=== PATIENT | male | born 1945 | race Two or more races ===

== ENCOUNTER 2017-11-03 21:55 | Inpatient (IN) | payer MEDICARE, MEDICAID ==
[~2017-11-03] VITALS: Ht 167.6 cm; Wt 79.4 kg
[2017-11-03 23:24] LABS: EOSINOPHILS % (AUTO) 3.7 % (0.0-3.0); HEMOGLOBIN 12.5 G/DL (14.2-18.0); LYMPHOCYTES % (AUTO) 27.9 % (20.0-45.0); MEAN CORPUSCULAR VOLUME 89 FL (80-99); MONOCYTES % (AUTO) 9.4 % (1.0-10.0); PLATELET COUNT 538 K/UL (150-450); RED BLOOD COUNT 4.29 M/UL (4.70-6.10); RED CELL DISTRIBUTION WIDTH 12.3 % (11.6-14.8); WHITE BLOOD COUNT 7.7 K/UL (4.8-10.8)
[2017-11-03] MEDS ORDERED: TAMSULOSIN HCL0.4 MG ORAL (23:46)
[2017-11-03] MEDS ORDERED: FOLIC ACID1 MG ORAL (23:46)
[2017-11-03] MEDS ORDERED: NORVASC5 MG ORAL (23:46)
[2017-11-03] MEDS ORDERED: MULTIVITAMINS1 EAC8 ORAL (23:46)
[2017-11-03] MEDS ORDERED: MILK OF MA400 MG/51 ORAL (23:46)
[2017-11-03] MEDS ORDERED: ACETAMINOPHEN325 M1 ORAL (23:46)
[2017-11-03] MEDS ORDERED: DOCUSATE SODIU100 MG ORAL (23:46)
[2017-11-03] MEDS ORDERED: VITAMIN B-1100 MG ORAL (23:46)
[2017-11-03 23:48] LABS: ANION GAP 4 mmol/L (5-15); BLOOD UREA NITROGEN 13 mg/dL (7-18); CALCIUM 8.7 MG/DL (8.5-10.1); CARBON DIOXIDE 33 MMOL/L (21-32); CHLORIDE 101 MMOL/L (98-107); CREATININE 0.9 MG/DL (0.55-1.30); POTASSIUM 3.7 MMOL/L (3.5-5.1); SODIUM 138 MMOL/L (136-145)
[2017-11-03 23:53] LABS: ALANINE AMINOTRANSFERASE 39 U/L (12-78); ALBUMIN 2.3 G/DL (3.4-5.0); ALBUMIN/GLOBULIN RATIO 0.4 (1.0-2.7); ALKALINE PHOSPHATASE 106 U/L (46-116); ASPARTATE AMINO TRANSFERASE 21 U/L (15-37); BILIRUBIN,TOTAL 0.2 MG/DL (0.2-1.0)
[2017-11-04] VITALS (12 sets, daily range): BP systolic 104–151; BP diastolic 66–80
[2017-11-04] MEDS ORDERED: Pantoprazole Inj IVP ONE (00:15)
--- NOTE | 2017-11-04 01:23 | Emergency Room Report ---
History of Present Illness General Chief Complaint: Gastrointestinal Bleed Source: Patient, Medical Record, EMS Present Illness HPI This is a 72-year-old male with a history of encephalopathy. Also history hypertension diabetes. He presents with chief complaint of coffee-ground emesis. Onset today. One episode. Patient doesn't remember and has no complaint. He has no pain. History is from intermediate note via EMS. Allergies: Coded Allergies: No Known Allergies (Unverified , 11/03/17) Patient History Past Medical History: see triage record, old chart reviewed Past Surgical History: other Pertinent Family History: none Social History: Denies: smoking Immunizations: other Reviewed Nursing Documentation: PMH: Agreed, PSxH: Agreed Nursing Documentation-PMH Hx Hypertension: Yes Hx Diabetes: Yes Review of Systems Eye: Denies: eye pain, blurred vision ENT: Denies: ear pain, nose congestion, throat swelling Respiratory: Denies: cough, shortness of breath Cardiovascular: Denies: chest pain, palpitations Gastrointestinal: Denies: abdominal pain, diarrhea, nausea, vomiting Musculoskeletal: Denies: back pain, joint pain Skin: Denies: rash Neurological: Denies: headache, numbness Endocrine: Denies: increased thirst, increased urine Hematologic/Lymphatic: Denies: easy bruising All Other Systems: negative except mentioned in HPI Physical Exam Vital Signs Date Time Temp Pulse Resp B/P (MAP) Pulse Ox O2 Delivery O2 Flow Rate FiO2 11/03/17 21:57 98.2 72 18 132/74 99 Room Air 98.2 vitals normal Sp02 EP Interpretation: reviewed, normal General Appearance: well appearing, no apparent distress, alert Head: normocephalic, atraumatic Eyes: bilateral eye PERRL, bilateral eye EOMI ENT: hearing grossly normal, normal pharynx Neck: full range of motion, supple, no meningismus Respiratory: chest non-tender, lungs clear, normal breath sounds Cardiovascular #1: regular rate, rhythm, no murmur Gastrointestinal: normal bowel sounds, non tender, no mass, no organomegaly, no bruit, non-distended Musculoskeletal: back normal, gait/station normal, normal range of motion Psychiatric: mood/affect normal Skin: warm/dry Medical Decision Making Diagnostic Impression: Primary Impression: UGI bleed ER Course Patient with one episode of coffee-ground emesis per intermediate note. He has no vomiting here. He has no complaint here. Hemoglobin is stable. Because of his confusion, we'll admit for serial H&H and possible endoscopy. Lab Results Impression labs unremarkable Rhythm Strip Diag. Results Rhythm Strip Time: 01:23 EP Interpretation: yes Rate: 61 Rhythm: NSR, no PVC's, no ectopy Chest X-Ray Diagnostic Results Chest X-Ray Diagnostic Results : Chest X-Ray Ordered: Yes # of Views/Limited/Complete: 1 View Indication: Other - GI bleed EP Interpretation: Yes Interpretation: no consolidation, no effusion, no pneumothorax, no acute cardiopulmonary disease Impression: No acute disease Electronically Signed by: Brant Jarrell MD Last Vital Signs Date Time Temp Pulse Resp B/P (MAP) Pulse Ox O2 Delivery O2 Flow Rate FiO2 11/04/17 00:34 98.2 15 138/69 98 Room Air 98.2 11/03/17 21:57 72 Status: improved Disposition: ADMITTED INPATIENT Condition: Serious Referrals: Ricardo Slater MD (PCP) BRANT JARRELL M.D. Nov 04, 2017 01:23
[2017-11-04 02:19] LABS: APPEARANCE,URINE CLEAR; BILIRUBIN, URINE NEGATIVE (NEGATIVE); COLOR,URINE PALE YELLOW; GLUCOSE, URINE (UA) NEGATIVE (NEGATIVE); KETONES,URINE NEGATIVE (NEGATIVE); LEUKOCYTE ESTERASE ,URINE NEGATIVE (NEGATIVE); NITRITE,URINE NEGATIVE (NEGATIVE); PH,URINE 6.5 (4.5-8.0); PROTEIN,URINE NEGATIVE (NEGATIVE); UROBILINOGEN,URINE NORMAL MG/DL (0.0-1.0)
[2017-11-04] MEDS ORDERED: Milk of Magnesia 30ml Ud ORAL PRN (08:15)
[2017-11-04] MEDS ORDERED: Hydromorphone 0.5mg/0.5ml inj IVP PRN (08:15)
[2017-11-04] MEDS ORDERED: Pneumococcal Vaccine 25mcg/0.5ml IM ONE (08:15)
[2017-11-04] MEDS ORDERED: Flu Vaccine Quadrivalent 0.5ml IM ONE (08:15)
--- NOTE | 2017-11-04 08:37 | Pre-Procedure Note/Attestation ---
Pre-Procedure Note/Attestation Complete Prior to Procedure Planned Procedure: not applicable Procedure Narrative: EGD Indications for Procedure Pre-Operative Diagnosis: gib Attestation I attest that I discussed the nature of the procedure; its benefits; risks and complications; and alternatives (and the risks and benefits of such alternatives ), prior to the procedure, with the patient (or the patient's legal ambulatory services representative). I attest that, if there was a reasonable possibility of needing a blood transfusion, the patient (or the patient's legal ambulatory services representative) was given the [facility] standardized written summary, pursuant to the [place]ank [place] Blood Safety Act ([place] Health and Safety Code # 1645, as amended). I attest that I re-evaluated the patient just prior to the surgery and that there has been no change in the patient's H&P, except as documented below: MACIE GALEAS Nov 04, 2017 08:37
--- NOTE | 2017-11-04 08:38 | General Progress Note ---
Assessment/Plan Problem List: (1) UGI bleed ICD Codes: K92.2 - Gastrointestinal hemorrhage, unspecified SNOMED: [id number] Assessment/Plan plan EGd today ppi bid fu H&H Subjective ROS Limited/Unobtainable: Yes Allergies: Coded Allergies: No Known Allergies (Unverified , 11/03/17) Objective Last 24 Hour Vital Signs Date Time Temp Pulse Resp B/P (MAP) Pulse Ox O2 Delivery O2 Flow Rate FiO2 11/04/17 08:00 98.6 67 18 131/80 96 Room Air 98.6 11/04/17 03:00 98.4 65 18 151/74 99 Room Air 98.4 11/04/17 03:00 98.4 65 18 151/74 98 Room Air 98.4 11/04/17 02:50 97.9 59 14 145/70 98 Room Air 11/04/17 02:45 97.9 59 14 145/70 98 Room Air 97.9 11/04/17 01:31 98.2 76 16 135/70 98 Room Air 98.2 11/04/17 00:34 98.2 15 138/69 98 Room Air 98.2 11/03/17 21:57 98.2 72 18 132/74 99 Room Air 98.2 Laboratory Tests 11/03/17 23:00: White Blood Count 7.7, Red Blood Count 4.29L, Hemoglobin 12.5L, Hematocrit 38.0L , Mean Corpuscular Volume 89, Mean Corpuscular Hemoglobin 29.1, Mean Corpuscular Hemoglobin Concent 32.9, Red Cell Distribution Width 12.3, Platelet Count 538H, Mean Platelet Volume 6.4L, Neutrophils (%) (Auto) 58.0, Lymphocytes (%) (Auto) 27.9, Monocytes (%) (Auto) 9.4, Eosinophils (%) (Auto) 3.7H, Basophils (%) (Auto) 1.0, Prothrombin Time 10.7, Prothromb Time International Ratio 1.0, Activated Partial Thromboplast Time 31, Sodium Level 138, Potassium Level 3.7, Chloride Level 101, Carbon Dioxide Level 33H, Anion Gap 4L, Blood Urea Nitrogen 13, Creatinine 0.9, Estimat Glomerular Filtration Rate , Glucose Level 93, Calcium Level 8.7, Total Bilirubin 0.2, Aspartate Amino Transf (AST/ SGOT) 21, Alanine Aminotransferase (ALT/SGPT) 39, Alkaline Phosphatase 106, Total Protein 7.5, Albumin 2.3L, Globulin 5.2, Albumin/Globulin Ratio 0.4L, Lipase 109 11/04/17 01:20: Urine Color Pale yellow, Urine Appearance Clear, Urine pH 6.5, Urine Specific [place] 1.015, Urine Protein Negative, Urine Glucose (UA) Negative, Urine Ketones Negative, Urine Occult Blood Negative, Urine Nitrite Negative, Urine Bilirubin Negative, Urine Urobilinogen Normal, Urine Leukocyte Esterase Negative Height (Feet): 5 Height (Inches): 6.00 Weight (Pounds): 175 General Appearance: alert EENT: normal ENT inspection Neck: supple Cardiovascular: normal rate Respiratory/Chest: decreased breath sounds Abdomen: normal bowel sounds, non tender, soft Extremities: non-tender MACIE GALEAS Nov 04, 2017 08:38
[2017-11-04] MEDS: Pantoprazole Inj IVP SCH ×2 (08:55→20:34)
--- NOTE | 2017-11-04 09:13 | Diagnostic Imaging Report ---
Indication: Shortness of breath Technique: One view of the chest Comparison: none Findings: On the lateral spaces are clear. The heart size is normal. The aorta is tortuous calcified and ectatic Impression: No acute process
[2017-11-04] MEDS ORDERED: NS w/KCl 20mEq 1,000 ML IV SCH (09:30)
[2017-11-04] MEDS ORDERED: LR 1000ml ONE (10:30)
[2017-11-04] MEDS ORDERED: Lidocaine 1% MPF 10mg/ml 5ml ONE (10:30)
[2017-11-04] MEDS ORDERED: Propofol 200mg/20ml IV ONE (10:30)
[2017-11-04] MEDS ORDERED: NS 500ML IV ONE (10:31)
--- NOTE | 2017-11-04 10:53 | Endoscopy Procedure Note ---
Endoscopy Procedure Note General Indication for Procedure: 'gib Procedures Performed: EGD Operative Findings/Diagnosis: barretts esophagus Specimen: yes Pt Tolerated Procedure Well: Yes Estimated Blood Loss: none Anesthesia Anesthesiologist: hien Anesthesia: MAC Inserted Devices Implant(s) used?: No GI Core Measures 50 yrs or older w/o bx or poly: Not Applicable 10yrs. F/U not recommended: Not Applicable MACIE GALEAS Nov 04, 2017 10:53
--- NOTE | 2017-11-04 10:55 | Immediate Post-Op Evaluation ---
Immediate Post-Op Evalulation Immediate Post-Op Evalulation Procedure: EGD Date of Evaluation: Nov 04, 2017 Time of Evaluation: 10:55 IV Fluids: 400 Blood Pressure Systolic: 112 Blood Pressure Diastolic: 68 Pulse Rate: 69 Respiratory Rate: 14 O2 Sat by Pulse Oximetry: 95 Temperature (Fahrenheit): 98.0 Pain Score (1-10): 0 Nausea: No Vomiting: No Complications none Patient Status: awake, reacts Hydration Status: adequate Drug: none TIFFANIE BAR CRNA Nov 04, 2017 10:55
--- NOTE | 2017-11-04 10:57 | Anethesia Preoperative Eval ---
Anesthesia Pre-op PMH/ROS General Date of Evaluation: Nov 04, 2017 Time of Evaluation: 10:30 Anesthesiologist: Maryanne ASA Score: ASA 2 Mallampati Score Class I : Soft palate, uvula, fauces, pillars visible Class II: Soft palate, uvula, fauces visible Class III: Soft palate, base of uvula visible Class IV: Only hard plate visible Mallampati Classification: Class II Surgeon: Albertina Diagnosis: UGI Surgical Procedure: EGD Anesthesia History: none Family History: no anesthesia problems Allergies: Coded Allergies: No Known Allergies (Unverified , 11/03/17) Medications: see eMAR Past Medical History Cardiovascular: Reports: HTN Pulmonary: Denies: asthma, COPD, CHRIS, other Gastrointestinal/Genitourinary: Reports: GERD, other - GI BLEEED, Denies: CRI, ESRD Neurologic/Psychiatric: Denies: dementia, CVA, depression/anxiety, TIA, other Endocrine: Denies: DM, hypothyroidism, steroids, other HEENT: Denies: cataract (L), cataract (R), glaucoma, TYONEK (L), TYONEK (R), other Hematology/Immune: Reports: anemia Musculoskeletal/Integumentary: Denies: OA, RA, DJD, DDD, edema, other PSxH Narrative: unknown Anesthesia Pre-op Phys. Exam Physician Exam Last Vital Signs Date Time Temp Pulse Resp B/P (MAP) Pulse Ox O2 Delivery O2 Flow Rate FiO2 11/04/17 08:00 98.6 67 18 131/80 96 Room Air 98.6 Constitutional: NAD Neurologic: CN 2-12 intact Cardiovascular: RRR Respiratory: CTA Gastrointestinal: S/NT/ND Airway Exam Mallampati Classification 3 Mallampati Score: Class II MO: full ROM: full Dentures: upper Anesthesia Pre-op A/P Labs Hematology Test 11/03/17 23:00 White Blood Count 7.7 K/UL (4.8-10.8) Red Blood Count 4.29 M/UL (4.70-6.10) L Hemoglobin 12.5 G/DL (14.2-18.0) L Hematocrit 38.0 % (42.0-52.0) L Mean Corpuscular Volume 89 FL (80-99) Mean Corpuscular Hemoglobin 29.1 PG (27.0-31.0) Mean Corpuscular Hemoglobin Concent 32.9 G/DL (32.0-36.0) Red Cell Distribution Width 12.3 % (11.6-14.8) Platelet Count 538 K/UL (150-450) H Mean Platelet Volume 6.4 FL (6.5-10.1) L Neutrophils (%) (Auto) 58.0 % (45.0-75.0) Lymphocytes (%) (Auto) 27.9 % (20.0-45.0) Monocytes (%) (Auto) 9.4 % (1.0-10.0) Eosinophils (%) (Auto) 3.7 % (0.0-3.0) H Basophils (%) (Auto) 1.0 % (0.0-2.0) Coagulation Test 11/03/17 23:00 Prothrombin Time 10.7 SEC (9.30-11.50) Prothromb Time International Ratio 1.0 (0.9-1.1) Activated Partial Thromboplast Time 31 SEC (23-33) Chemistry Test 11/03/17 23:00 Sodium Level 138 MMOL/L (136-145) Potassium Level 3.7 MMOL/L (3.5-5.1) Chloride Level 101 MMOL/L (98-107) Carbon Dioxide Level 33 MMOL/L (21-32) H Anion Gap 4 mmol/L (5-15) L Blood Urea Nitrogen 13 mg/dL (7-18) Creatinine 0.9 MG/DL (0.55-1.30) Estimat Glomerular Filtration Rate mL/min (>60) Glucose Level 93 MG/DL (74-106) Calcium Level 8.7 MG/DL (8.5-10.1) Total Bilirubin 0.2 MG/DL (0.2-1.0) Aspartate Amino Transf (AST/SGOT) 21 U/L (15-37) Alanine Aminotransferase (ALT/SGPT) 39 U/L (12-78) Alkaline Phosphatase 106 U/L (46-116) Total Protein 7.5 G/DL (6.4-8.2) Albumin 2.3 G/DL (3.4-5.0) L Globulin 5.2 g/dL Albumin/Globulin Ratio 0.4 (1.0-2.7) L Lipase 109 U/L (73-393) Studies Pre-op Studies: EKG - sr Risk Assessment & Plan Assessment: denies cp/sob, VSS Plan: mac Status Change Before Surgery: No Pre-Antibiotics Drug: none TIFFANIE BAR CRNA Nov 04, 2017 10:57
[2017-11-04] MEDS ORDERED: Enoxaparin 30mg Inj SUBQ SCH (12:00)
[2017-11-04] MEDS: Docusate 100mg cap ORAL SCH ×2 (12:43→20:34)
--- NOTE | 2017-11-04 13:40 | History & Physical ---
History and Physical History & Physicial [id number] Job ID [id number] Devlin Nov 04, 2017 13:40
--- NOTE | 2017-11-04 13:50 | 48 Hour Post Anesthesia Eval ---
Post Anesthesia Evaluation Procedure: EGD Date of Evaluation: Nov 04, 2017 Time of Evaluation: 13:50 Blood Pressure Systolic: 127 0: 66 Pulse Rate: 67 Respiratory Rate: 14 O2 Sat by Pulse Oximetry: 99 Nausea: No Vomiting: No Hydration Status: adequate Cardiopulmonary Status: stable Mental Status/LOC: patient returned to baseline Follow-up Care/Observations: na Post-Anesthesia Complications: none Follow-up care needed: N/A TIFFANIE BAR CRNA Nov 04, 2017 13:50
[2017-11-04] MEDS ORDERED: PROTONIX40 M2 GT (14:41)
--- NOTE | 2017-11-04 18:15 | Procedure Note ---
DATE OF PROCEDURE: 11/04/2017 SURGEON: Moisés Eng M.D. REFERRING PHYSICIAN: Ricardo Slater M.D. PROCEDURE: Upper endoscopy with biopsy. ANESTHESIA: Per REAL ESTATE APPRAISER, Priya Tarrillion. INSTRUMENT: Olympus adult flexible upper endoscope. INDICATION: Coffee-ground emesis. The procedure, risks, benefits, and possible consequences, including hemorrhage, aspiration, perforation and infection, and alternative treatments, were explained to the patient/legal guardian by Dr. Moisés Eng and the patient/legal guardian understood and accepted these risks. DESCRIPTION OF PROCEDURE: After informed consent was obtained and the patient was adequately sedated, Olympus upper endoscope was advanced from the mouth into the second portion of the duodenum and retroflexion was performed in the stomach. 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 GE junction was at 40 cm. The patient has a small hiatal hernia. No evidence of any esophagitis. Four biopsies from this Wheat's area were obtained for diagnosis. The patient also had multiple polyps in the stomach, most probably fundic gland polyps. No biopsies of these polyps was performed. The patient also had diffuse gastritis. Random biopsy from antrum and body was obtained to rule out H. pylori infection. The patient tolerated the procedure very well without any complication. SUMMARY OF FINDINGS: 1. A 7-cm Wheat esophagus, status post biopsy. 2. Small hiatal hernia. 3. Multiple gastric polyps, most probably fundic gland polyps. 4. Gastritis, status biopsy. RECOMMENDATIONS: 1. Follow biopsy results and treat accordingly. 2. The patient to be on PPI daily. 3. Reflux measures. 4. The patient is okay to be discharged. 5. Need colonoscopy as an outpatient. 6. Also needs followup for his Wheat esophagus as an outpatient. I want to thank Dr. Ricardo Slater for this kind referral. Moisés Eng M.D. DR: Denia JOB#: [id number] CC: Ricardo Slater M.D.; Fax#: [phone]
--- NOTE | 2017-11-05 01:15 | History and Physical Report ---
DATE OF ADMISSION: 11/04/2017 REASON FOR ADMISSION: GI bleed. IDENTIFICATION DATA: The patient is a pleasant 72-year-old male with past medical history significant for hypertension and encephalopathy, at this time presents with coffee-ground emesis one episode. The patient does not remember any of this and does not have any complaints at this time. [facility] of the [facility] as [facility] as [facility] records. GI has evaluated the patient in the morning today. Dr. Eng completed EGD, colonoscopy, and currently is on a PPI. Potentially, the patient is stable to be discharged today. PAST MEDICAL HISTORY: Encephalopathy, hypertension, and diabetes. PAST SURGICAL HISTORY: None known. SOCIAL HISTORY: No alcohol or illicit drug use, but does smoke. FAMILY HISTORY: Noncontributory. REVIEW OF SYSTEMS: CONSTITUTIONAL: No fevers, chills, or night sweats. SKIN: No rashes, bumps, or itching. HEENT: No headache, hearing or vision changes. BREASTS: No lumps, pain, or discharge. PULMONARY: No cough, sputum, or shortness of breath. GASTROINTESTINAL: Some nausea, vomiting, or diarrhea noted, however has improved. GENITOURINARY: No dysuria, frequency, or urgency. MUSCULOSKELETAL: No joint swelling, muscle pain, or trauma. PHYSICAL EXAMINATION: VITAL SIGNS: Reviewed. GENERAL: No distress. PULMONARY: Decreased breath sounds. CARDIOVASCULAR: Regular rate. No S3 or S4. ABDOMEN: Soft, nontender, and nondistended. EXTREMITIES: No cyanosis, swelling, or edema. LABORATORY DATA: WBC 7.7, hemoglobin 12.5, hematocrit 38, and platelet count ,000. ASSESSMENT AND RECOMMENDATIONS: 1. Gastrointestinal bleed. The patient is status post esophagogastroduodenoscopy. Gastritis noted. The patient is okay to be discharged on proton pump inhibitor as outpatient to be followed up back to the half-way facility. 2. Anemia due to underlying chronic disease. Continue to closely monitor. 3. Thrombocytosis, secondary to reactive process from anemia. 4. Hyperlipidemia, likely secondary to decreased p.o. intake. 5. Smoking history. Recommend cessation. Continue to closely monitor. 6. The patient is stable for discharge. I appreciate the wig sales consultant care. Santino De La Paz M.D. DR: NIKKI JOB#: [id number] CC:
--- NOTE | 2017-11-07 11:53 | Discharge Summary ---
Discharge Summary Hospital Course Date of Admission Nov 04, 2017 at 00:51 Date of Discharge Nov 04, 2017 at 21:58 Admitting Diagnosis GI bleed HPI Heath Monterroso is a 72 year old male who was admitted on Nov 04, 2017 at 00:51 for Gi Bleed Hospital Course dc summary #[id number] Discharge Medications Continued Medications: Pantoprazole Sodium (Protonix) 40 Mg Granpkt.dr 40 MG GT DAILY for 30 Days, PKT 2 Refills Discharge Discharge Disposition Patient was discharged to SNF/Subacute Facility(03) Discharge Diagnoses: Discharge Instructions Discharge Instructions Special Instructions I have been assigned to complete a D/C Summary on this account. I was not involved in the patient management Arin Higgins NP (Vanchtein) Nov 07, 2017 11:53
--- NOTE | 2017-11-08 01:45 | Discharge Summary 2 SIG ---
DATE OF ADMISSION: 11/04/2017 DATE OF DISCHARGE: 11/04/2017 REASON FOR ADMISSION: 72 years old male with history of hypertension, encephalopathy, and diabetes mellitus, was sent from the alf facility for evaluation due to episode of coffee-ground emesis. Upon evaluation in the emergency room, vital signs were stable. Chemistry was unremarkable. Hemoglobin -12.5 and hematocrit -38. Urinalysis with no evidence of UTI. The patient was typed and crossed. Chest x-ray revealed no acute cardiopulmonary pathology. The patient was admitted with diagnosis of GI bleeding. HOSPITAL COURSE: The patient was admitted. GI consult was requested. The patient undergone esophagogastroduodenoscopy with finding of Wheat esophagitis, status post biopsy, small hiatal hernia, gastritis, status post biopsy. Multiple gastric polyps probably fundic gland polyps, status post biopsy. The patient was started on PPI. The patient was started on diet with strict reflux measures. Bowel regimen instituted. GI cleared the patient for discharge and recommended colonoscopy as outpatient. Follow up as outpatient for management of Wheat esophagitis. Hemoglobin and hematocrit remained stable. The patient had anemia of underlying chronic disease. The patient also noted slight thrombocytosis, which was due to reactive process from anemia. The patient with smoking history, counseled on smoking cessation. long term facility medications for blood pressure and blood sugar management were resumed. The patient was stable for discharge. GI cleared for discharge. Follow up with biopsy results and treat accordingly. No further episodes of coffee-ground emesis. The patient was able to tolerate diet. The patient was on DVT prophylaxis. Due to rapid and unexpected improvement in the patient's condition, the patient was discharged in one day. FINAL DIAGNOSES: 1. GI bleeding, 2. Status post EGD. 3. Wheat esophagitis, status post biopsy 4. Gastritis, status post biopsy. 5. Anemia due to underlying chronic disease. 6. Thrombocytosis. 7. Smoking history. 8. Hyperlipidemia. DISCHARGE MEDICATIONS: See medication reconciliation list. DISCHARGE INSTRUCTIONS: The patient was discharged to alf facility. FOLLOWUP: Follow up with medical doctor at the facility. Outpatient follow up with GI for colonoscopy and management of Wheat esophagitis. Ali Hadadz, M.D. I have been assigned to dictate discharge summary on this account and I was not involved in the patient's management. Arin Higgins (Vanchtein) NBrentonPBrenton DR: Zakia JOB#: [id number] CC: RAMIRO
== END 2017-11-04 21:58 | DRG 379 ==
LOC: EDBD 21:55 → EMR 22:47 → 3E 11-04 00:51 → EDBEDREQ 11-04 01:14
PROC: 0DB58ZX Excision of Esophagus, Via Natural or Artificial Opening Endoscopic, Diagnostic (ICD-10-PCS; principal; 2017-11-04 10:34)
PROC: 0DB78ZX Excision of Stomach, Pylorus, Via Natural or Artificial Opening Endoscopic, Diagnostic (ICD-10-PCS; principal; 2017-11-04 10:34)
PROC: 0DB68ZX Excision of Stomach, Via Natural or Artificial Opening Endoscopic, Diagnostic (ICD-10-PCS; principal; 2017-11-04 10:34)
DX: K92.2 Gastrointestinal hemorrhage, unspecified (principal); E11.9 Type 2 diabetes mellitus without complications; D63.8 Anemia in other chronic diseases classified elsewhere; I10 Essential (primary) hypertension; D47.3 Essential (hemorrhagic) thrombocythemia; K22.70 Barrett's esophagus without dysplasia; E78.5 Hyperlipidemia, unspecified; F17.200 Nicotine dependence, unspecified, uncomplicated; K31.7 Polyp of stomach and duodenum
CPT/HCPCS: 36415; 71045; 80053; 81003; 83690; 85025; 85610; 85730; 86850; 86900; 86901; 94003; 94150; 99285

== ENCOUNTER 2017-12-17 02:23 | Inpatient (IN) | payer MEDICARE, MEDICAID ==
[~2017-12-17] VITALS: Ht 170.2 cm; Wt 81.6 kg
[~2017-12-17 02:23] MED LIST: ACETAMINOPHEN325 M1 ORAL; DOCUSATE SODIU100 MG ORAL; FOLIC ACID1 MG ORAL; MILK OF MA400 MG/51 ORAL; MULTIVITAMINS1 EAC8 ORAL; NORVASC5 MG ORAL; PROTONIX40 M2 GT; TAMSULOSIN HCL0.4 MG ORAL; VITAMIN B-1100 MG ORAL
[2017-12-17 03:07] LABS: EOSINOPHILS % (AUTO) 3.8 % (0.0-3.0); HEMATOCRIT 38.8 % (42.0-52.0); LYMPHOCYTES % (AUTO) 30.6 % (20.0-45.0); MEAN CORPUSCULAR VOLUME 87 FL (80-99); MONOCYTES % (AUTO) 10.1 % (1.0-10.0); NEUTROPHILS % (AUTO) 54.5 % (45.0-75.0); PLATELET COUNT 308 K/UL (150-450); RED BLOOD COUNT 4.48 M/UL (4.70-6.10); RED CELL DISTRIBUTION WIDTH 13.2 % (11.6-14.8); WHITE BLOOD COUNT 7.8 K/UL (4.8-10.8)
[2017-12-17 03:11] LABS: ANION GAP 7 mmol/L (5-15); BLOOD UREA NITROGEN 14 mg/dL (7-18); CALCIUM 8.2 MG/DL (8.5-10.1); CARBON DIOXIDE 29 MMOL/L (21-32); CHLORIDE 104 MMOL/L (98-107); CREATININE 0.9 MG/DL (0.55-1.30); POTASSIUM 3.5 MMOL/L (3.5-5.1); SODIUM 139 MMOL/L (136-145)
[2017-12-17 03:24] LABS: ALANINE AMINOTRANSFERASE 15 U/L (12-78); ALBUMIN 2.9 G/DL (3.4-5.0); ALBUMIN/GLOBULIN RATIO 0.6 (1.0-2.7); ALKALINE PHOSPHATASE 103 U/L (46-116); ASPARTATE AMINO TRANSFERASE 14 U/L (15-37); BILIRUBIN,TOTAL 0.4 MG/DL (0.2-1.0); CKMB 0.9 NG/ML (0.0-3.6); CREATINE KINASE 83 U/L (26-308)
[2017-12-17] MEDS ORDERED: cefTRIAXone 1 GM in NS 55 ML IVPB ONE (03:30)
--- NOTE | 2017-12-17 03:47 | Emergency Room Report ---
History of Present Illness General Chief Complaint: Lower Extremity Injury Source: Patient, Medical Record Present Illness HPI Patient is a 72-year-old male sent in by nursing facility for increased left foot discomfort and swelling. Patient had gradual onset of symptoms over the past 2-3 days. The patient denies any fever. He reports being diabetic. Patient prior history of encephalopathy. The history is markedly limited by patient being a poor historian. Allergies: Coded Allergies: No Known Allergies (Unverified , 11/03/17) Patient History Past Medical History: see triage record Reviewed Nursing Documentation: PMH: Agreed; PSxH: Agreed Nursing Documentation-PMH Hx Hypertension: Yes Hx Diabetes: Yes - type 2 dm Hx Cancer: No Hx Gastrointestinal Problems: No Review of Systems All Other Systems: negative except mentioned in HPI Physical Exam Vital Signs Date Time Temp Pulse Resp B/P (MAP) Pulse Ox O2 Delivery O2 Flow Rate FiO2 12/17/17 02:24 98.7 60 18 155/79 98 Room Air 98.8 Sp02 EP Interpretation: reviewed, normal General Appearance: normal inspection, well appearing, no apparent distress, alert, GCS 15 Head: atraumatic ENT: normal ENT inspection, hearing grossly normal, normal voice Neck: normal inspection, full range of motion, supple, no bony tend Respiratory: normal inspection, lungs clear, normal breath sounds, no respiratory distress, no retraction, no wheezing Cardiovascular #1: regular rate, rhythm, no edema Gastrointestinal: normal inspection, normal bowel sounds, non tender, soft, no guarding, no hernia Genitourinary: no CVA tenderness Musculoskeletal: normal inspection, back normal, normal range of motion Neurologic: normal inspection, alert, responsive, rehab nurse III-XII nml as tested, speech normal Psychiatric: normal inspection, judgement/insight normal, mood/affect normal Skin: no rash, other - left foot swelling, discoloration, abrasions Medical Decision Making Diagnostic Impression: Primary Impression: Cellulitis of left foot Additional Impression: Diabetes ER Course Patient presented for skin rash. Differential diagnosis included wasn't limited to cellulitis, osteomyelitis, abscess, DVT among others.Because of complexity of patient's case laboratory testing and imaging studies were ordered. The patient noted to have increased swelling to the left foot. The patient was noted to have brisk dorsalis pedis pulses. Patient was started on IV antibiotics.Dr. Ricardo Peters was contacted for inpatient management Labs Test 12/17/17 02:33 White Blood Count 7.8 K/UL (4.8-10.8) Red Blood Count 4.48 M/UL (4.70-6.10) Hemoglobin 13.0 G/DL (14.2-18.0) Hematocrit 38.8 % (42.0-52.0) Mean Corpuscular Volume 87 FL (80-99) Mean Corpuscular Hemoglobin 29.1 PG (27.0-31.0) Mean Corpuscular Hemoglobin Concent 33.6 G/DL (32.0-36.0) Red Cell Distribution Width 13.2 % (11.6-14.8) Platelet Count 308 K/UL (150-450) Mean Platelet Volume 7.1 FL (6.5-10.1) Neutrophils (%) (Auto) 54.5 % (45.0-75.0) Lymphocytes (%) (Auto) 30.6 % (20.0-45.0) Monocytes (%) (Auto) 10.1 % (1.0-10.0) Eosinophils (%) (Auto) 3.8 % (0.0-3.0) Basophils (%) (Auto) 1.0 % (0.0-2.0) Sodium Level 139 MMOL/L (136-145) Potassium Level 3.5 MMOL/L (3.5-5.1) Chloride Level 104 MMOL/L (98-107) Carbon Dioxide Level 29 MMOL/L (21-32) Anion Gap 7 mmol/L (5-15) Blood Urea Nitrogen 14 mg/dL (7-18) Creatinine 0.9 MG/DL (0.55-1.30) Estimat Glomerular Filtration Rate mL/min (>60) Glucose Level 88 MG/DL (74-106) Lactic Acid Level 0.80 mmol/L (0.66-2.22) Calcium Level 8.2 MG/DL (8.5-10.1) Phosphorus Level 3.0 MG/DL (2.5-4.9) Magnesium Level 2.1 MG/DL (1.8-2.4) Total Bilirubin 0.4 MG/DL (0.2-1.0) Aspartate Amino Transf (AST/SGOT) 14 U/L (15-37) Alanine Aminotransferase (ALT/SGPT) 15 U/L (12-78) Alkaline Phosphatase 103 U/L (46-116) Total Creatine Kinase 83 U/L (26-308) Creatine Kinase MB 0.9 NG/ML (0.0-3.6) Creatine Kinase MB Relative Index 1.0 Troponin I 0.004 ng/mL (0.000-0.056) Total Protein 8.1 G/DL (6.4-8.2) Albumin 2.9 G/DL (3.4-5.0) Globulin 5.2 g/dL Albumin/Globulin Ratio 0.6 (1.0-2.7) EKG Diagnostic Results Rate: normal Rhythm: NSR ST Segments: no acute changes Last Vital Signs Date Time Temp Pulse Resp B/P (MAP) Pulse Ox O2 Delivery O2 Flow Rate FiO2 12/17/17 02:24 98.7 60 18 155/79 98 Room Air 98.8 Status: unchanged Disposition: ADMITTED INPATIENT Condition: Serious Referrals: Ricardo Slater MD (PCP) Nando Mackey Dec 17, 2017 03:47
[2017-12-17 04:30] VITALS: BP 136/54
[2017-12-17 04:39] LABS: APPEARANCE,URINE CLEAR; BILIRUBIN, URINE NEGATIVE (NEGATIVE); COLOR,URINE PALE YELLOW; GLUCOSE, URINE (UA) NEGATIVE (NEGATIVE); KETONES,URINE NEGATIVE (NEGATIVE); LEUKOCYTE ESTERASE ,URINE NEGATIVE (NEGATIVE); NITRITE,URINE NEGATIVE (NEGATIVE); PH,URINE 7 (4.5-8.0); PROTEIN,URINE NEGATIVE (NEGATIVE); UROBILINOGEN,URINE NORMAL MG/DL (0.0-1.0)
[2017-12-17] MEDS ORDERED: MOM30 ML ORAL ×2 (05:36→05:39)
[2017-12-17 05:49] VITALS: BP 139/76
[2017-12-17 08:00] VITALS: BP 124/77
--- NOTE | 2017-12-17 09:33 | Diagnostic Imaging Report ---
Indication: Left foot pain Technique: Left foot 3 views Comparison: None Findings: There is no radiographically evident fracture or dislocation. There is degenerative spurring and narrowing of the first metatarsophalangeal joint. Osteopenia is noted. Soft tissue swelling is seen. Impression: No radiographically evident fracture or dislocation. Soft tissue swelling. Clinical correlation recommended. Other findings as above.
--- NOTE | 2017-12-17 09:34 | Diagnostic Imaging Report ---
Indication: Shortness of breath Technique: XRAY Chest 1v Comparison: 11/03/2017 Findings: Cardiomediastinal silhouette is stable. Atherosclerotic changes are seen. There is no consolidation or pleural effusion. Osseous structures are stable. Impression: No acute cardiopulmonary disease.
[2017-12-17 12:00] VITALS: BP 153/72
[2017-12-17] MEDS ORDERED: Docusate 100mg cap ORAL SCH (12:02)
[2017-12-17] MEDS ORDERED: Thiamine 100mg tab ORAL SCH (12:05)
[2017-12-17] MEDS: Vancomycin 1.5 GM/D5W 250ML IVPB SCH (15:21)
[2017-12-17] MEDS ORDERED: NS 275ml ONE (15:30)
[2017-12-17 16:00] VITALS: BP 145/71
[2017-12-17 20:00] VITALS: BP 139/77
[2017-12-17] MEDS ORDERED: Milk of Magnesia 30ml Ud ORAL PRN (21:00)
[2017-12-17] MEDS: Tamsulosin 0.4mg cap ORAL SCH (21:01)
[2017-12-18] VITALS: BP 128/72
--- NOTE | 2017-12-18 04:15 | History and Physical Report ---
DATE OF ADMISSION: 12/17/2017 HISTORY OF PRESENT ILLNESS: The patient is admitted for left foot cellulitis. The patient does complain of pain in left foot as well. The patient denies fever or chills. Denies nausea, vomiting, diarrhea, and abdominal pain. No shortness of breath. Denies cough. PAST MEDICAL HISTORY: Constipation, GERD, BPH as well as history of borderline diabetes mellitus as well as history of hypertension. FAMILY HISTORY: Noncontributory. SOCIAL HISTORY: Denies history of alcohol or illicit drugs. REVIEW OF SYSTEMS: HEENT: Denies headaches. RESPIRATORY: Denies shortness of breath. Denies cough. CARDIOVASCULAR: Denies chest pain. Denies orthopnea. GASTROINTESTINAL: Denies nausea, vomiting, or diarrhea. constipation. EXTREMITIES: Reports of foot pain. PHYSICAL EXAMINATION: VITAL SIGNS: Temperature 98.7 degrees, pulse of 62, and blood pressure is 132/54. HEENT: PERRLA. NECK: Supple. No lymphadenopathy. CHEST: Clear to auscultation. GASTROINTESTINAL: Soft, nontender, and nondistended. No organomegaly. EXTREMITIES: The patient does have erythema and redness on bilateral left foot. cellulitis and lower extremity weakness. LABORATORY AND DIAGNOSTIC DATA: WBC of 7.8, hemoglobin 13, and platelets of 308,000. Sodium 139, potassium 3.5, BUN of 14, creatinine of 0.9, and glucose of 88. ASSESSMENT AND PLAN: Cellulitis of the foot as well as hypokalemia. I have asked Dr. Gomes, Dr. Szymanski, and Dr. Perdomo, broadcast maintenance engineer, to see the patient for the above-mentioned diagnoses and treatment. Antibiotics per ID team. Ricardo Slater M.D. DR: MING JOB#: [id number] CC:
[2017-12-18 08:00] VITALS: BP 127/77
--- NOTE | 2017-12-18 08:30 | Consultation ---
Consult Note Assessment/Plan A/ 1) Cellulitis left foot 2) Generalized excoriations 3) DM P 1) Abx per ID. 2) No surgical intervention needed. Lesions can be left open to air. 3) Will follow Thank you Rachid Swanson DPM Dec 18, 2017 08:30
[2017-12-18] MEDS: Docusate 100mg cap ORAL SCH (09:27)
[2017-12-18] MEDS: Thiamine 100mg tab ORAL SCH (09:27)
[2017-12-18 12:00] VITALS: BP 116/79
[2017-12-18] MEDS: Vancomycin 1.5 GM/D5W 250ML IVPB SCH (13:41)
[2017-12-18] MEDS ORDERED: Vancomycin 750mg/NS 250ml IVPB SCH (15:30)
[2017-12-18 16:00] VITALS: BP 129/66
--- NOTE | 2017-12-18 16:45 | Consultation ---
DATE OF CONSULTATION: 12/18/2017 REFERRING PHYSICIAN: Ricardo Slater M.D. CONSULTING PHYSICIAN: Rachid Perdomo D.P.M. REASON FOR CONSULTATION: Cellulitis of left foot in the presence of diabetes mellitus. HISTORY OF PRESENT ILLNESS: The patient is a 72-year-old male who was admitted to [facility] on 12/17/2017 for left foot cellulitis. The patient states that he has got lesions noted on his feet, his legs, and his body. Noticed increased swelling in the left leg. Currently denies any pain, fevers, chills, nausea, or vomiting. She is here for continued care and antibiotics. PAST MEDICAL HISTORY: Significant for gastroesophageal reflux disease, benign prostatic hypertrophy, diabetes mellitus, and history of hypertension. FAMILY HISTORY: Noncontributory. SOCIAL HISTORY: The patient resides in a shelter facility. ALLERGIES: He has no known drug allergies. MEDICATIONS: Per MAR and include vancomycin. REVIEW OF SYSTEMS: HEENT: The patient denies any headaches, blurred vision, or ringing in the ears. CARDIORESPIRATORY: The patient denies any chest pain or shortness of breath. GENITOURINARY: The patient denies any urgency, frequency, burning upon urination, or hematuria. GASTROINTESTINAL: The patient currently denies any constipation, diarrhea, or blood in stool. PHYSICAL EXAMINATION: VITAL SIGNS: Temperature is 98.0, pulse 66, respiration rate is 21 blood pressure is 128/72, and saturating 99% on room air. EXTREMITIES: Lower extremity physical exam, vascular, palpable pedal pulses noted bilaterally. Feet are equally warm. There is 1+ pitting edema noted on the left. No edema noted on the right. DERMATOLOGICAL: There is hair present on digits. There are multiple erythematous lesions noted on bilateral lower extremities. There is mild erythema noted on the left lower extremity. No drainage is noted from any of these sites. No fluctuance is noted. MUSCULOSKELETAL: The patient has 5/5 muscle strength in anterolateral and posterior muscle groups of bilateral lower extremities. No gross deformities are noted. NEUROLOGICAL: Protective thresholds intact. LABORATORY AND DIAGNOSTIC DATA: White blood cell count is 7.8, hemoglobin and hematocrit is 13.0 and 38.8, and platelet count is 308. Potassium is 3.5, BUN is 14, creatinine is 0.9. Lactic acid is 0.80. Albumin is 2.9. Foot x-ray of the left foot done on this admission shows soft tissue swelling. No other acute changes are noted. ASSESSMENT: 1. Cellulitis of the left foot. 2. Generalized excoriations throughout his body. 3. Diabetes mellitus. PLAN: 1. Antibiotics per Infectious Disease. 2. No surgical intervention that is indicated at this time. Lesions can be left open to air. 3. We will follow. Thank you for the courtesy of consultation, Dr. Slater. Rachid Perdomo D.P.M. DR: TIFFANIE JOB#: [id number] CC:
--- NOTE | 2017-12-18 18:00 | Consultation ---
DATE OF CONSULTATION: INFECTIOUS DISEASE CONSULTATION CONSULTING PHYSICIAN: Tello Gomes M.D. PRIMARY ATTENDING: Ricardo Slater M.D. REASON FOR CONSULT: Left foot cellulitis. HISTORY OF PRESENT ILLNESS: A 72-year-old male, admitted yesterday from nursing facility. He was complaining of foot swelling and discomfort. In addition, he has multiple skin scabs and skin itching. The patient was not febrile and has no leukocytosis at the time of admission. PAST MEDICAL HISTORY: Significant for diabetes mellitus type 2, hypertension, and encephalopathy. ALLERGIES: No known drug allergies. MEDICATIONS: Colace, folic acid, multivitamin, amlodipine, Protonix, thiamine, Flomax, vancomycin, and Tylenol. SOCIAL HISTORY: prison resident. No history of alcohol, drug abuse, or smoking. He is . REVIEW OF SYSTEMS: Very limited. The patient is not very cooperative. PHYSICAL EXAMINATION: VITAL SIGNS: Temperature 98.4, pulse 70, and blood pressure 127/77. GENERAL APPEARANCE: No acute distress. HEAD AND NECK: [place] conjunctivae. Has no teeth. HEART: Regular. LUNGS: Clear. ABDOMEN: Soft and nontender. EXTREMITIES: No edema. SKIN: Multiple skin rashes in form of ulcerated scabs, more in lower extremities. There are some areas of skin lesion in the left foot. IMPRESSION: 1. Cellulitis of left foot. 2. Rash, may be secondary to dermatitis and skin dryness. 3. Diabetes mellitus type 2. 4. Hypertension. RECOMMENDATION: We will continue with IV vancomycin. We will follow up the culture. We will try to discharge patient with p.o. antibiotic. At the end of my exam, I thank Dr. Slater for involving me in the care of this patient. Tello Gomes M.D. DR: WILLIS JOB#: [id number] CC: RAMIRO
[2017-12-18 20:00] VITALS: BP 124/73
[2017-12-18] MEDS: Tamsulosin 0.4mg cap ORAL SCH (20:26)
--- NOTE | 2017-12-18 20:59 | General Progress Note ---
Assessment/Plan Problem List: (1) Cellulitis of left foot ICD Codes: L03.116 - Cellulitis of left lower limb SNOMED: 668911390 (2) Diabetes ICD Codes: E11.9 - Type 2 diabetes mellitus without complications SNOMED: 10981940 Status: progressing Assessment/Plan cellulitis of foot improving abx per id afebrile Subjective ROS Limited/Unobtainable: Yes Allergies: Coded Allergies: No Known Allergies (Unverified , 11/03/17) Objective Last 24 Hour Vital Signs Date Time Temp Pulse Resp B/P (MAP) Pulse Ox O2 Delivery O2 Flow Rate FiO2 12/18/17 20:00 99.4 63 20 124/73 96 99.4 12/18/17 16:00 98.0 65 19 129/66 97 Room Air 98.0 12/18/17 12:00 98.4 70 19 116/79 98 Room Air 98.4 12/18/17 09:26 70 127/77 12/18/17 08:00 98.4 70 18 127/77 99 Room Air 98.4 12/18/17 00:00 98.0 66 21 128/72 99 98.0 Intake and Output 12/17/17 12/18/17 19:00 07:00 Intake Total 570 ml Balance 570 ml Intake Oral 320 ml IV Total 250 ml # Voids 4 2 Height (Feet): 5 Height (Inches): 7.00 Weight (Pounds): 180 Cardiovascular: regular rhythm Respiratory/Chest: chest wall non-tender Abdomen: soft Ricardo Slater MD Dec 18, 2017 20:59
[2017-12-19] VITALS: BP 138/65
[2017-12-19 08:00] VITALS: BP 125/68
[2017-12-19] MEDS: Thiamine 100mg tab ORAL SCH (08:19)
[2017-12-19] MEDS: Docusate 100mg cap ORAL SCH (08:19)
[2017-12-19] MEDS: Vancomycin 750mg/NS 250ml IVPB SCH ×2 (09:17→21:06)
[2017-12-19 12:00] VITALS: BP 129/69
--- NOTE | 2017-12-19 12:47 | Infectious Diseases Prog Note ---
Assessment/Plan Assessment/Plan A: 1. Cellulitis of left foot. 2. Rash, may be secondary to dermatitis and skin dryness. 3. Diabetes mellitus type 2. 4. Hypertension. P; Continue Iv Vancomycin Subjective ROS Limited/Unobtainable: No Respiratory: Reports: no symptoms Gastrointestinal/Abdominal: Reports: no symptoms Musculoskeletal: Reports: no symptoms Allergies: Coded Allergies: No Known Allergies (Unverified , 11/03/17) Objective Vital Signs Last 24 Hour Vital Signs Date Time Temp Pulse Resp B/P (MAP) Pulse Ox O2 Delivery O2 Flow Rate FiO2 12/19/17 12:00 97.2 64 21 129/69 97 Room Air 97.2 12/19/17 08:19 64 125/60 12/19/17 08:00 98.8 64 22 125/68 99 Room Air 98.8 12/19/17 00:00 97.1 58 20 138/65 96 97.1 12/18/17 20:00 99.4 63 20 124/73 96 99.4 12/18/17 16:00 98.0 65 19 129/66 97 Room Air 98.0 Height (Feet): 5 Height (Inches): 7.00 Weight (Pounds): 180 General Appearance: no acute distress HEENT: mucous membranes moist, other - no teeth or denture Respiratory/Chest: lungs clear Cardiovascular: normal rate Abdomen: soft, non tender Skin: ulcers, other - more in legs Neurologic/Psychiatric: alert, responsive Microbiology Date/Time Source Procedure Growth Status 12/17/17 02:40 Blood Blood Culture - Preliminary NO GROWTH AFTER 24 HOURS Resulted 12/17/17 02:25 Blood Blood Culture - Preliminary NO GROWTH AFTER 24 HOURS Resulted 12/17/17 04:24 Nasal Nares MRSA Culture - Final NO METHICILLIN RESISTANT STAPH AUREUS... Complete 12/17/17 04:24 Rectum VRE Culture - Final NO VANCOMYCIN RESISTANT ENTEROCOCCUS ... Complete Current Medications Medications (Trade) Dose Ordered Sig/[place] Route PRN Reason Start Time Stop Time Status Last Admin Dose Admin Acetaminophen (Tylenol) 650 mg Q4H PRN ORAL Mild Pain/Temp > 101 F 12/17/17 10:41 01/16/18 10:40 Amlodipine Besylate (Norvasc) 5 mg DAILY ORAL 12/18/17 09:00 01/17/18 08:59 12/19/17 08:19 Diazepam (Valium) 10 mg Q6H PRN ORAL For Anxiety 12/19/17 10:15 12/26/17 10:14 Docusate Sodium (Colace) 100 mg DAILY ORAL 12/18/17 09:00 01/17/18 08:59 12/19/17 08:19 Folic Acid (Folate) 1 mg DAILY ORAL 12/18/17 09:00 01/17/18 08:59 12/19/17 08:19 Magnesium Hydroxide (Mom) 30 ml QHS PRN ORAL Constipation 12/17/17 21:00 01/16/18 20:59 Multivitamins (Multivitamins) 1 tab DAILY ORAL 12/18/17 09:00 01/17/18 08:59 12/19/17 08:19 Pantoprazole (Protonix) 40 mg DAILY ORAL 12/18/17 09:00 01/17/18 08:59 12/19/17 08:19 Tamsulosin HCl (Flomax) 0.4 mg BEDTIME ORAL 12/17/17 21:00 01/16/18 20:59 12/18/17 20:26 Thiamine HCl (Vitamin B1) 100 mg DAILY ORAL 12/18/17 09:00 01/17/18 08:59 12/19/17 08:19 Vancomycin HCl (Vanco rx to dose) 1 ea DAILY PRN MISC Per rx protocol 12/17/17 12:30 01/16/18 12:29 Vancomycin/Sodium Chloride 250 ml @ 166.667 mls/hr Q12H IVPB 12/19/17 10:00 12/24/17 09:59 12/19/17 09:17 TORY KAPLAN Dec 19, 2017 12:47
[2017-12-19 15:49] VITALS: BP 137/76
--- NOTE | 2017-12-19 17:38 | GI Initial Consult Note ---
History of Present Illness General Date patient seen: Dec 19, 2017 Time patient seen: 17:37 Reason for Hospitalization: Lower Extremity Injury Referring physician: LANETTE OROZCO Reason for Consultation: ANEMIA Present Illness HPI Patient is a 72-year-old male sent in by nursing facility for increased left foot discomfort and swelling. Patient had gradual onset of symptoms over the past 2-3 days. The patient denies any fever. He reports being diabetic. Patient prior history of encephalopathy. The history is markedly limited by patient being a poor historian. GI consulted for anemia. Pt seen, awake A&Ox4 NAD with no active s/sx of N/V/ D. No general GI complaints noted at this time. Pt has no history of endoscopy / colonoscopy. Labs reviewed shows mild anemia. Home Meds Reported Medications Magnesium Hydroxide (Milk of Magnesia) 400 Mg/5 Ml Oral.susp, 30 ML ORAL DAILY for constipation, ML 12/17/17 Pantoprazole Sodium (Protonix) 40 Mg Granpkt.dr, 40 MG GT DAILY for 30 Days, PKT 2 Refills 11/04/17 Acetaminophen* (ACETAMINOPHEN 325MG TABLET*) 325 Mg Tablet, 650 MG ORAL Q4H PRN for Fever/Headache/Mild Pain, TAB 11/03/17 Acetaminophen* (ACETAMINOPHEN 325MG TABLET*) 325 Mg Tablet, 650 MG ORAL Q4H PRN for For Pain, TAB 11/03/17 Thiamine Hcl* (VITAMIN B-1*) 100 Mg Tablet, 100 MG ORAL DAILY, #30 TAB 0 Refills 11/03/17 Amlodipine Besylate (Norvasc) 5 Mg Tablet, 5 MG ORAL DAILY, TAB 11/03/17 Multivitamin With Minerals (MULTIVITAMINS WITH MINERALS*) 1 Each Tablet, 1 TAB ORAL DAILY, TAB 11/03/17 Folic Acid* (FOLIC ACID*) 1 Mg Tablet, 1 MG ORAL DAILY, TAB 11/03/17 Tamsulosin Hcl (TAMSULOSIN HCL*) 0.4 Mg Cap.er.24h, 0.4 MG ORAL BEDTIME, CAP 11/03/17 Docusate Sodium* (DOCUSATE SODIUM*) 100 Mg Capsule, 100 MG ORAL DAILY, CAP 11/03/17 Discontinued Reported Medications Magnesium Hydroxide* (MILK OF MAGNESIA*) 400 Mg/5 Ml Oral.susp, 30 ML ORAL DAILY , ML 11/03/17 Med list reviewed/reconciled: Yes Allergies: Coded Allergies: No Known Allergies (Unverified , 11/03/17) Patient History History Provided By: Patient, Medical Record Review of Systems All Other Systems: negative except mentioned in HPI Physical Exam Vital Signs Date Time Temp Pulse Resp B/P (MAP) Pulse Ox O2 Delivery O2 Flow Rate FiO2 12/17/17 02:24 98.7 60 18 155/79 98 Room Air 98.8 Sp02 EP Interpretation: reviewed, normal General Appearance: well appearing, no apparent distress, alert Head: normocephalic EENT: PERRL/EOMI, normal ENT inspection Neck: supple Respiratory: normal breath sounds, no respiratory distress Cardiovascular: normal rate Gastrointestinal: normal inspection, non tender, soft, normal bowel sounds, non -distended Rectal: deferred Genitourinary: deferred Musculoskeletal: normal inspection, back normal Neurologic: normal inspection, alert, oriented x3, responsive Psychiatric: normal inspection, judgement/insight normal, memory normal Skin: normal inspection, normal color, no rash, warm/dry, palpation normal, well hydrated Lymphatic: normal inspection, no adenopathy Current Medications Current Medications Medications (Trade) Dose Ordered Sig/Dor[place]a Route PRN Reason Start Time Stop Time Status Last Admin Dose Admin Acetaminophen (Tylenol) 650 mg Q4H PRN ORAL Mild Pain/Temp > 101 F 12/17/17 10:41 01/16/18 10:40 Amlodipine Besylate (Norvasc) 5 mg DAILY ORAL 12/18/17 09:00 01/17/18 08:59 12/19/17 08:19 Diazepam (Valium) 10 mg Q6H PRN ORAL For Anxiety 12/19/17 10:15 12/26/17 10:14 Docusate Sodium (Colace) 100 mg DAILY ORAL 12/18/17 09:00 01/17/18 08:59 12/19/17 08:19 Folic Acid (Folate) 1 mg DAILY ORAL 12/18/17 09:00 01/17/18 08:59 12/19/17 08:19 Magnesium Hydroxide (Mom) 30 ml QHS PRN ORAL Constipation 12/17/17 21:00 01/16/18 20:59 Multivitamins (Multivitamins) 1 tab DAILY ORAL 12/18/17 09:00 01/17/18 08:59 12/19/17 08:19 Pantoprazole (Protonix) 40 mg DAILY ORAL 12/18/17 09:00 01/17/18 08:59 12/19/17 08:19 Tamsulosin HCl (Flomax) 0.4 mg BEDTIME ORAL 12/17/17 21:00 01/16/18 20:59 12/18/17 20:26 Thiamine HCl (Vitamin B1) 100 mg DAILY ORAL 12/18/17 09:00 01/17/18 08:59 12/19/17 08:19 Vancomycin HCl (Vanco rx to dose) 1 ea DAILY PRN MISC Per rx protocol 12/17/17 12:30 01/16/18 12:29 Vancomycin/Sodium Chloride 250 ml @ 166.667 mls/hr Q12H IVPB 12/19/17 10:00 12/24/17 09:59 12/19/17 09:17 GI: Plan Problems: (1) Anemia (2) Cellulitis of left foot (3) Diabetes Plan symptomatic treatment anemia work up OB stool r/o GI bleed monitor H&H, prn transfusions bowel regime ppi fu labs outpatient GI procedures Discussed with Dr. Eng. Thank you for this patient referral, we will follow. Smiley Jarrell N.P. Dec 19, 2017 17:38
[2017-12-19] MEDS ORDERED: Docusate 100mg cap ORAL SCH (18:30)
[2017-12-19 20:00] VITALS: BP 140/72
--- NOTE | 2017-12-19 20:48 | General Progress Note ---
Assessment/Plan Problem List: (1) Cellulitis of left foot ICD Codes: L03.116 - Cellulitis of left lower limb SNOMED: 809631913 (2) Diabetes ICD Codes: E11.9 - Type 2 diabetes mellitus without complications SNOMED: [id number] Status: progressing Assessment/Plan cellulitis of foot improving abx per id sugar improving dc planning Subjective ROS Limited/Unobtainable: Yes Allergies: Coded Allergies: No Known Allergies (Unverified , 11/03/17) Objective Last 24 Hour Vital Signs Date Time Temp Pulse Resp B/P (MAP) Pulse Ox O2 Delivery O2 Flow Rate FiO2 12/19/17 20:00 98.4 63 20 140/72 100 98.4 12/19/17 15:49 97.6 61 20 137/76 97 Room Air 97.6 12/19/17 12:00 97.2 64 21 129/69 97 Room Air 97.2 12/19/17 08:19 64 125/60 12/19/17 08:00 98.8 64 22 125/68 99 Room Air 98.8 12/19/17 00:00 97.1 58 20 138/65 96 97.1 Intake and Output 12/18/17 12/19/17 19:00 07:00 Intake Total 520 ml Output Total 500 ml Balance 20 ml Intake Oral 520 ml Output Urine Total 500 ml # Voids 3 Height (Feet): 5 Height (Inches): 7.00 Weight (Pounds): 180 Neck: supple Cardiovascular: normal rate Respiratory/Chest: lungs clear Abdomen: soft Ricardo Slater MD Dec 19, 2017 20:48
[2017-12-19] MEDS: Miralax 17gm pkt ORAL SCH (21:03)
[2017-12-19] MEDS: Tamsulosin 0.4mg cap ORAL SCH (21:03)
--- NOTE | 2017-12-19 22:16 | Consultation ---
History of Present Illness General Date patient seen: Dec 18, 2017 Chief Complaint: Lower Extremity Injury Referring physician: LANETTE OROZCO Reason for Consultation: ANEMIA Present Illness HPI 72-year-old male who was admitted to [facility] for left foot cellulitis. The pt has hx of alcohol dependence. The pt stated that he mainly drinks beers. the pt was irritable when i spoke to him about his diet and denture. the pt was not si/hi Allergies: Coded Allergies: No Known Allergies (Unverified , 11/03/17) Medication History Scheduled Amlodipine Besylate (Norvasc), 5 MG ORAL DAILY, (Reported) Docusate Sodium* (Docusate Sodium*), 100 MG ORAL DAILY, (Reported) Folic Acid* (Folic Acid*), 1 MG ORAL DAILY, (Reported) Magnesium Hydroxide (Milk of Magnesia), 30 ML ORAL DAILY, (Reported) Multivitamin With Minerals (Multivitamins With Minerals*), 1 TAB ORAL DAILY, ( Reported) Pantoprazole Sodium (Protonix), 40 MG GT DAILY, (Reported) Tamsulosin Hcl (Tamsulosin Hcl*), 0.4 MG ORAL BEDTIME, (Reported) Thiamine Hcl* (Vitamin B-1*), 100 MG ORAL DAILY, (Reported) Scheduled PRN Acetaminophen* (Acetaminophen 325MG Tablet*), 650 MG ORAL Q4H PRN for For Pain, (Reported) Acetaminophen* (Acetaminophen 325MG Tablet*), 650 MG ORAL Q4H PRN for Fever/ Headache/Mild Pain, (Reported) Discontinued Medications Magnesium Hydroxide* (Milk Of Magnesia*), 30 ML ORAL DAILY, (Reported) Discontinued Reason: Medication dose changed Patient History Limited by: medical condition History Provided By: Patient, Medical Record, PMD Healthcare decision maker Resuscitation status Full Code Advanced Directive on File Past Medical/Surgical History Past Medical/Surgical History: (1) Diabetes (2) Cellulitis of left foot (3) Anemia Review of Systems Psychiatric: Reports: prior hx, anxiety, emotional problems Physical Exam General Appearance: no apparent distress, alert Neurologic: oriented x 3, responsive, depressed affect Last 24 Hour Vital Signs Date Time Temp Pulse Resp B/P (MAP) Pulse Ox O2 Delivery O2 Flow Rate FiO2 12/19/17 20:00 98.4 63 20 140/72 100 98.4 12/19/17 15:49 97.6 61 20 137/76 97 Room Air 97.6 12/19/17 12:00 97.2 64 21 129/69 97 Room Air 97.2 12/19/17 08:19 64 125/60 12/19/17 08:00 98.8 64 22 125/68 99 Room Air 98.8 12/19/17 00:00 97.1 58 20 138/65 96 97.1 Intake and Output 12/18/17 12/19/17 19:00 07:00 Intake Total 520 ml Output Total 500 ml Balance 20 ml Intake Oral 520 ml Output Urine Total 500 ml # Voids 3 Height (Feet): 5 Height (Inches): 7.00 Weight (Pounds): 180 Medications Current Medications Medications (Trade) Dose Ordered Sig/Dorothea Route PRN Reason Start Time Stop Time Status Last Admin Dose Admin Acetaminophen (Tylenol) 650 mg Q4H PRN ORAL Mild Pain/Temp > 101 F 12/17/17 10:41 01/16/18 10:40 Amlodipine Besylate (Norvasc) 5 mg DAILY ORAL 12/18/17 09:00 01/17/18 08:59 12/19/17 08:19 Diazepam (Valium) 10 mg Q6H PRN ORAL For Anxiety 12/19/17 10:15 12/26/17 10:14 Docusate Sodium (Colace) 100 mg TWICE A DAY ORAL 12/20/17 09:00 01/19/18 08:59 Folic Acid (Folate) 1 mg DAILY ORAL 12/18/17 09:00 01/17/18 08:59 12/19/17 08:19 Magnesium Hydroxide (Mom) 30 ml QHS PRN ORAL Constipation 12/17/17 21:00 01/16/18 20:59 Multivitamins (Multivitamins) 1 tab DAILY ORAL 12/18/17 09:00 01/17/18 08:59 12/19/17 08:19 Pantoprazole (Protonix) 40 mg DAILY ORAL 12/18/17 09:00 01/17/18 08:59 12/19/17 08:19 Polyethylene Glycol (Miralax) 17 gm BEDTIME ORAL 12/19/17 21:00 01/18/18 20:59 12/19/17 21:03 Tamsulosin HCl (Flomax) 0.4 mg BEDTIME ORAL 12/17/17 21:00 01/16/18 20:59 12/19/17 21:03 Thiamine HCl (Vitamin B1) 100 mg DAILY ORAL 12/18/17 09:00 01/17/18 08:59 12/19/17 08:19 Vancomycin HCl (Vanco rx to dose) 1 ea DAILY PRN MISC Per rx protocol 12/17/17 12:30 01/16/18 12:29 Vancomycin/Sodium Chloride 250 ml @ 166.667 mls/hr Q12H IVPB 12/19/17 10:00 12/24/17 09:59 12/19/17 21:06 Assessment/Plan Assessment/Plan alcohol dependence vs abuse thiamine folate Valium prn Fela Bucio M.D. Dec 19, 2017 22:16
--- NOTE | 2017-12-19 22:17 | General Progress Note ---
Assessment/Plan Assessment/Plan alcohol dependence vs abuse thiamine folate Valium prn Subjective Date patient seen: Dec 19, 2017 Neurologic/Psychiatric: Reports: anxiety, depressed, emotional problems Allergies: Coded Allergies: No Known Allergies (Unverified , 11/03/17) Objective Last 24 Hour Vital Signs Date Time Temp Pulse Resp B/P (MAP) Pulse Ox O2 Delivery O2 Flow Rate FiO2 12/19/17 20:00 98.4 63 20 140/72 100 98.4 12/19/17 15:49 97.6 61 20 137/76 97 Room Air 97.6 12/19/17 12:00 97.2 64 21 129/69 97 Room Air 97.2 12/19/17 08:19 64 125/60 12/19/17 08:00 98.8 64 22 125/68 99 Room Air 98.8 12/19/17 00:00 97.1 58 20 138/65 96 97.1 Intake and Output 12/18/17 12/19/17 19:00 07:00 Intake Total 520 ml Output Total 500 ml Balance 20 ml Intake Oral 520 ml Output Urine Total 500 ml # Voids 3 Height (Feet): 5 Height (Inches): 7.00 Weight (Pounds): 180 General Appearance: no apparent distress, alert Neurologic: oriented x 3, responsive, depressed affect Fela Bucio M.D. Dec 19, 2017 22:17
[2017-12-20] VITALS: BP 139/76
[2017-12-20 04:00] VITALS: BP 134/73
[2017-12-20 07:35] LABS: BASOPHILS % (AUTO) 1.4 % (0.0-2.0); EOSINOPHILS % (AUTO) 6.1 % (0.0-3.0); HEMATOCRIT 34.9 % (42.0-52.0); HEMOGLOBIN 11.9 G/DL (14.2-18.0); MEAN CORPUSCULAR VOLUME 86 FL (80-99); MONOCYTES % (AUTO) 12.8 % (1.0-10.0); NEUTROPHILS % (AUTO) 37.7 % (45.0-75.0); PLATELET COUNT 287 K/UL (150-450); RED BLOOD COUNT 4.05 M/UL (4.70-6.10); RED CELL DISTRIBUTION WIDTH 13.3 % (11.6-14.8); WHITE BLOOD COUNT 5.2 K/UL (4.8-10.8)
[2017-12-20 08:04] LABS: ANION GAP 7 mmol/L (5-15); BLOOD UREA NITROGEN 14 mg/dL (7-18); CALCIUM 8.5 MG/DL (8.5-10.1); CARBON DIOXIDE 28 MMOL/L (21-32); CHLORIDE 105 MMOL/L (98-107); CREATININE 0.9 MG/DL (0.55-1.30); FERRITIN 86 NG/ML (8-388); POTASSIUM 3.2 MMOL/L (3.5-5.1); SODIUM 139 MMOL/L (136-145)
[2017-12-20] MEDS: Docusate 100mg cap ORAL SCH ×2 (08:26→17:40)
[2017-12-20] MEDS: Thiamine 100mg tab ORAL SCH (08:27)
[2017-12-20 08:32] VITALS: BP 141/81
[2017-12-20 09:12] LABS: % IRON SATURATION 21 % (15-50); IRON 57 ug/dL (50-175); TOTAL IRON BINDING CAPACITY 268 ug/dL (250-450)
[2017-12-20] MEDS ORDERED: Tubing IV Secondary IV ONE (09:25)
[2017-12-20] MEDS: Vancomycin 750mg/NS 250ml IVPB SCH ×2 (10:57→21:21)
--- NOTE | 2017-12-20 11:37 | Infectious Diseases Prog Note ---
Assessment/Plan Assessment/Plan A: 1. Cellulitis of left foot. 2. Rash, may be secondary to dermatitis and skin dryness. 3. Diabetes mellitus type 2. 4. Hypertension. 5. Alcohol dependence & abuse P; Continue Iv Vancomycin Subjective ROS Limited/Unobtainable: No Constitutional: Reports: no symptoms Cardiovascular: Reports: no symptoms Allergies: Coded Allergies: No Known Allergies (Unverified , 11/03/17) Objective Vital Signs Last 24 Hour Vital Signs Date Time Temp Pulse Resp B/P (MAP) Pulse Ox O2 Delivery O2 Flow Rate FiO2 12/20/17 08:32 98.2 70 18 141/81 98 98.2 12/20/17 08:26 70 141/81 12/20/17 04:00 98.0 60 19 134/73 98 98.0 12/20/17 00:00 97.9 61 19 139/76 94 97.9 12/19/17 20:00 98.4 63 20 140/72 100 98.4 12/19/17 15:49 97.6 61 20 137/76 97 Room Air 97.6 12/19/17 12:00 97.2 64 21 129/69 97 Room Air 97.2 Height (Feet): 5 Height (Inches): 7.00 Weight (Pounds): 180 General Appearance: no acute distress HEENT: mucous membranes moist Respiratory/Chest: lungs clear Cardiovascular: normal rate Abdomen: soft, non tender Skin: ulcers, other - improving Neurologic/Psychiatric: responsive Laboratory Tests Test 12/20/17 05:40 12/20/17 09:00 White Blood Count 5.2 K/UL (4.8-10.8) Red Blood Count 4.05 M/UL (4.70-6.10) L Hemoglobin 11.9 G/DL (14.2-18.0) L Hematocrit 34.9 % (42.0-52.0) L Mean Corpuscular Volume 86 FL (80-99) Mean Corpuscular Hemoglobin 29.4 PG (27.0-31.0) Mean Corpuscular Hemoglobin Concent 34.1 G/DL (32.0-36.0) Red Cell Distribution Width 13.3 % (11.6-14.8) Platelet Count 287 K/UL (150-450) Mean Platelet Volume 6.6 FL (6.5-10.1) Neutrophils (%) (Auto) 37.7 % (45.0-75.0) L Lymphocytes (%) (Auto) 42.0 % (20.0-45.0) Monocytes (%) (Auto) 12.8 % (1.0-10.0) H Eosinophils (%) (Auto) 6.1 % (0.0-3.0) H Basophils (%) (Auto) 1.4 % (0.0-2.0) Reticulocyte Count 1.8 % (0.0-2.0) Prothrombin Time 10.7 SEC (9.30-11.50) Prothromb Time International Ratio 1.0 (0.9-1.1) Activated Partial Thromboplast Time 34 SEC (23-33) H Sodium Level 139 MMOL/L (136-145) Potassium Level 3.2 MMOL/L (3.5-5.1) L Chloride Level 105 MMOL/L (98-107) Carbon Dioxide Level 28 MMOL/L (21-32) Anion Gap 7 mmol/L (5-15) Blood Urea Nitrogen 14 mg/dL (7-18) Creatinine 0.9 MG/DL (0.55-1.30) Estimat Glomerular Filtration Rate mL/min (>60) Glucose Level 74 MG/DL (74-106) Calcium Level 8.5 MG/DL (8.5-10.1) Iron Level 57 ug/dL (50-175) Total Iron Binding Capacity 268 ug/dL (250-450) Percent Iron Saturation 21 % (15-50) Unsaturated Iron Binding 211 ug/dL (112-346) Ferritin 86 NG/ML (8-388) Vitamin B12 Level 358 PG/ML (193-986) Folate 41.2 NG/ML (8.6-58.9) Thyroid Stimulating Hormone (TSH) 5.407 uiU/mL (0.358-3.740) Free Thyroxine 1.17 NG/DL (0.76-1.46) Vancomycin Level Trough 10.1 ug/mL (5.0-12.0) Current Medications Medications (Trade) Dose Ordered Sig/Dorothea Route PRN Reason Start Time Stop Time Status Last Admin Dose Admin Acetaminophen (Tylenol) 650 mg Q4H PRN ORAL Mild Pain/Temp > 101 F 12/17/17 10:41 01/16/18 10:40 Amlodipine Besylate (Norvasc) 5 mg DAILY ORAL 12/18/17 09:00 01/17/18 08:59 12/20/17 08:26 Diazepam (Valium) 10 mg Q6H PRN ORAL For Anxiety 12/19/17 10:15 12/26/17 10:14 Docusate Sodium (Colace) 100 mg TWICE A DAY ORAL 12/20/17 09:00 01/19/18 08:59 12/20/17 08:26 Folic Acid (Folate) 1 mg DAILY ORAL 12/18/17 09:00 01/17/18 08:59 12/20/17 08:26 Magnesium Hydroxide (Mom) 30 ml QHS PRN ORAL Constipation 12/17/17 21:00 01/16/18 20:59 Multivitamins (Multivitamins) 1 tab DAILY ORAL 12/18/17 09:00 01/17/18 08:59 12/20/17 08:27 Pantoprazole (Protonix) 40 mg DAILY ORAL 12/18/17 09:00 01/17/18 08:59 12/20/17 08:27 Polyethylene Glycol (Miralax) 17 gm BEDTIME ORAL 12/19/17 21:00 01/18/18 20:59 12/19/17 21:03 Tamsulosin HCl (Flomax) 0.4 mg BEDTIME ORAL 12/17/17 21:00 01/16/18 20:59 12/19/17 21:03 Thiamine HCl (Vitamin B1) 100 mg DAILY ORAL 12/18/17 09:00 01/17/18 08:59 12/20/17 08:27 Vancomycin HCl (Vanco rx to dose) 1 ea DAILY PRN MISC Per rx protocol 12/17/17 12:30 01/16/18 12:29 Vancomycin/Sodium Chloride 250 ml @ 166.667 mls/hr Q12H IVPB 12/19/17 10:00 12/24/17 09:59 12/20/17 10:57 TORY KAPLAN Dec 20, 2017 11:37
[2017-12-20 12:16] VITALS: BP 149/85
[2017-12-20] MEDS ORDERED: Milk of Magnesia 30ml Ud ORAL PRN (13:30)
[2017-12-20] MEDS ORDERED: Bisacodyl EC 5mg tab ORAL ONE (13:45)
--- NOTE | 2017-12-20 14:28 | GI Progress Note ---
Assessment/Plan Problems: (1) Constipated ICD Codes: K59.00 - Constipation, unspecified SNOMED: 56637676 (2) Anemia ICD Codes: D64.9 - Anemia, unspecified SNOMED: 411049875 Status: stable Status Narrative Discussed with Dr. Eng. Assessment/Plan symptomatic treatment monitor H&H, prn transfusions bowel regime ppi fu labs outpatient GI procedures Subjective Subjective constipated Objective Last 24 Hour Vital Signs Date Time Temp Pulse Resp B/P (MAP) Pulse Ox O2 Delivery O2 Flow Rate FiO2 12/20/17 12:16 97.7 65 18 149/85 96 97.7 12/20/17 08:32 98.2 70 18 141/81 98 98.2 12/20/17 08:26 70 141/81 12/20/17 04:00 98.0 60 19 134/73 98 98.0 12/20/17 00:00 97.9 61 19 139/76 94 97.9 12/19/17 20:00 98.4 63 20 140/72 100 98.4 12/19/17 15:49 97.6 61 20 137/76 97 Room Air 97.6 Intake and Output 12/19/17 12/20/17 19:00 07:00 Intake Total 1200 ml 333.334 ml Output Total 800 ml Balance 400 ml 333.334 ml Intake Oral 1200 ml IV Total 333.334 ml Output Urine Total 800 ml # Voids 1 2 Laboratory Tests Test 12/20/17 05:40 12/20/17 09:00 White Blood Count 5.2 K/UL (4.8-10.8) Red Blood Count 4.05 M/UL (4.70-6.10) L Hemoglobin 11.9 G/DL (14.2-18.0) L Hematocrit 34.9 % (42.0-52.0) L Mean Corpuscular Volume 86 FL (80-99) Mean Corpuscular Hemoglobin 29.4 PG (27.0-31.0) Mean Corpuscular Hemoglobin Concent 34.1 G/DL (32.0-36.0) Red Cell Distribution Width 13.3 % (11.6-14.8) Platelet Count 287 K/UL (150-450) Mean Platelet Volume 6.6 FL (6.5-10.1) Neutrophils (%) (Auto) 37.7 % (45.0-75.0) L Lymphocytes (%) (Auto) 42.0 % (20.0-45.0) Monocytes (%) (Auto) 12.8 % (1.0-10.0) H Eosinophils (%) (Auto) 6.1 % (0.0-3.0) H Basophils (%) (Auto) 1.4 % (0.0-2.0) Reticulocyte Count 1.8 % (0.0-2.0) Prothrombin Time 10.7 SEC (9.30-11.50) Prothromb Time International Ratio 1.0 (0.9-1.1) Activated Partial Thromboplast Time 34 SEC (23-33) H Sodium Level 139 MMOL/L (136-145) Potassium Level 3.2 MMOL/L (3.5-5.1) L Chloride Level 105 MMOL/L (98-107) Carbon Dioxide Level 28 MMOL/L (21-32) Anion Gap 7 mmol/L (5-15) Blood Urea Nitrogen 14 mg/dL (7-18) Creatinine 0.9 MG/DL (0.55-1.30) Estimat Glomerular Filtration Rate mL/min (>60) Glucose Level 74 MG/DL (74-106) Calcium Level 8.5 MG/DL (8.5-10.1) Iron Level 57 ug/dL (50-175) Total Iron Binding Capacity 268 ug/dL (250-450) Percent Iron Saturation 21 % (15-50) Unsaturated Iron Binding 211 ug/dL (112-346) Ferritin 86 NG/ML (8-388) Vitamin B12 Level 358 PG/ML (193-986) Folate 41.2 NG/ML (8.6-58.9) Thyroid Stimulating Hormone (TSH) 5.407 uiU/mL (0.358-3.740) Free Thyroxine 1.17 NG/DL (0.76-1.46) Vancomycin Level Trough 10.1 ug/mL (5.0-12.0) Height (Feet): 5 Height (Inches): 7.00 Weight (Pounds): 180 General Appearance: WD/WN, no apparent distress, alert Cardiovascular: normal rate Respiratory/Chest: normal breath sounds, no respiratory distress Abdominal Exam: normal bowel sounds, non tender, soft Extremities: normal range of motion, non-tender Jarrell,Smiley Chang N.P. Dec 20, 2017 14:28
[2017-12-20 15:42] VITALS: BP 136/75
[2017-12-20 20:00] VITALS: BP 132/89
[2017-12-20] MEDS: Tamsulosin 0.4mg cap ORAL SCH (21:00)
[2017-12-20] MEDS: Miralax 17gm pkt ORAL SCH (21:00)
--- NOTE | 2017-12-20 23:41 | General Progress Note ---
Assessment/Plan Status: stable, progressing Assessment/Plan alcohol dependence vs abuse thiamine folate Valium prn Subjective Date patient seen: Dec 20, 2017 Neurologic/Psychiatric: Reports: anxiety, emotional problems Allergies: Coded Allergies: No Known Allergies (Unverified , 11/03/17) Objective Last 24 Hour Vital Signs Date Time Temp Pulse Resp B/P (MAP) Pulse Ox O2 Delivery O2 Flow Rate FiO2 12/20/17 20:00 98.2 62 19 132/89 98 98.2 12/20/17 15:42 97.9 63 18 136/75 99 97.9 12/20/17 12:16 97.7 65 18 149/85 96 97.7 12/20/17 08:32 98.2 70 18 141/81 98 98.2 12/20/17 08:26 70 141/81 12/20/17 04:00 98.0 60 19 134/73 98 98.0 12/20/17 00:00 97.9 61 19 139/76 94 97.9 Intake and Output 12/19/17 12/20/17 19:00 07:00 Intake Total 1200 ml 333.334 ml Output Total 800 ml Balance 400 ml 333.334 ml Intake Oral 1200 ml IV Total 333.334 ml Output Urine Total 800 ml # Voids 1 2 Laboratory Tests 12/20/17 05:40: White Blood Count 5.2, Red Blood Count 4.05L, Hemoglobin 11.9L, Hematocrit 34.9L , Mean Corpuscular Volume 86, Mean Corpuscular Hemoglobin 29.4, Mean Corpuscular Hemoglobin Concent 34.1, Red Cell Distribution Width 13.3, Platelet Count 287, Mean Platelet Volume 6.6, Neutrophils (%) (Auto) 37.7L, Lymphocytes ( %) (Auto) 42.0, Monocytes (%) (Auto) 12.8H, Eosinophils (%) (Auto) 6.1H, Basophils (%) (Auto) 1.4, Reticulocyte Count 1.8, Prothrombin Time 10.7, Prothromb Time International Ratio 1.0, Activated Partial Thromboplast Time 34H , Sodium Level 139, Potassium Level 3.2L, Chloride Level 105, Carbon Dioxide Level 28, Anion Gap 7, Blood Urea Nitrogen 14, Creatinine 0.9, Estimat Glomerular Filtration Rate , Glucose Level 74, Calcium Level 8.5, Iron Level 57 , Total Iron Binding Capacity 268, Percent Iron Saturation 21, Unsaturated Iron Binding 211, Ferritin 86, Vitamin B12 Level 358, Folate 41.2, Thyroid Stimulating Hormone (TSH) 5.407H, Free Thyroxine 1.17 12/20/17 09:00: Vancomycin Level Trough 10.1 Height (Feet): 5 Height (Inches): 7.00 Weight (Pounds): 180 General Appearance: no apparent distress, alert Neurologic: oriented x 3, responsive, normal mood/affect Fela Bucio M.D. Dec 20, 2017 23:41
[2017-12-21 04:00] VITALS: BP 137/74
[2017-12-21 08:00] VITALS: BP 145/82
[2017-12-21 08:16] LABS: BASOPHILS % (AUTO) 1.3 % (0.0-2.0); EOSINOPHILS % (AUTO) 4.8 % (0.0-3.0); HEMATOCRIT 38.5 % (42.0-52.0); HEMOGLOBIN 13.3 G/DL (14.2-18.0); MEAN CORPUSCULAR VOLUME 86 FL (80-99); MONOCYTES % (AUTO) 10.7 % (1.0-10.0); NEUTROPHILS % (AUTO) 48.2 % (45.0-75.0); PLATELET COUNT 316 K/UL (150-450); RED BLOOD COUNT 4.46 M/UL (4.70-6.10); RED CELL DISTRIBUTION WIDTH 13.1 % (11.6-14.8)
[2017-12-21] MEDS: Docusate 100mg cap ORAL SCH (08:23)
[2017-12-21] MEDS: Thiamine 100mg tab ORAL SCH (08:25)
[2017-12-21 08:36] LABS: ANION GAP 9 mmol/L (5-15); BLOOD UREA NITROGEN 13 mg/dL (7-18); CALCIUM 8.7 MG/DL (8.5-10.1); CARBON DIOXIDE 24 MMOL/L (21-32); CHLORIDE 105 MMOL/L (98-107); CREATININE 0.9 MG/DL (0.55-1.30); POTASSIUM 3.4 MMOL/L (3.5-5.1); SODIUM 138 MMOL/L (136-145)
[2017-12-21] MEDS: Vancomycin 750mg/NS 250ml IVPB SCH (09:28)
--- NOTE | 2017-12-21 10:10 | Infectious Diseases Prog Note ---
Assessment/Plan Assessment/Plan A: 1. Cellulitis of left foot. 2. Rash, may be secondary to dermatitis and skin dryness. 3. Diabetes mellitus type 2. 4. Hypertension. 5. Alcohol dependence & abuse P; Change Iv Vancomycin to Po Doxycycline 5 days Subjective ROS Limited/Unobtainable: No Constitutional: Reports: no symptoms HEENT: Reports: no symptoms Respiratory: Reports: no symptoms Gastrointestinal/Abdominal: Reports: no symptoms Genitourinary: Reports: no symptoms Allergies: Coded Allergies: No Known Allergies (Unverified , 11/03/17) Objective Vital Signs Last 24 Hour Vital Signs Date Time Temp Pulse Resp B/P (MAP) Pulse Ox O2 Delivery O2 Flow Rate FiO2 12/21/17 08:24 73 145/82 12/21/17 04:00 98.0 60 20 137/74 100 98.0 12/20/17 20:00 98.2 62 19 132/89 98 98.2 12/20/17 15:42 97.9 63 18 136/75 99 97.9 12/20/17 12:16 97.7 65 18 149/85 96 97.7 Height (Feet): 5 Height (Inches): 7.00 Weight (Pounds): 180 General Appearance: no acute distress HEENT: mucous membranes moist Respiratory/Chest: lungs clear Cardiovascular: normal rate Abdomen: soft, non tender Extremities: no edema Skin: ulcers, other - healing superficial sacabs Neurologic/Psychiatric: alert, responsive Laboratory Tests Test 12/21/17 07:40 White Blood Count 5.0 K/UL (4.8-10.8) Red Blood Count 4.46 M/UL (4.70-6.10) L Hemoglobin 13.3 G/DL (14.2-18.0) L Hematocrit 38.5 % (42.0-52.0) L Mean Corpuscular Volume 86 FL (80-99) Mean Corpuscular Hemoglobin 29.8 PG (27.0-31.0) Mean Corpuscular Hemoglobin Concent 34.6 G/DL (32.0-36.0) Red Cell Distribution Width 13.1 % (11.6-14.8) Platelet Count 316 K/UL (150-450) Mean Platelet Volume 6.6 FL (6.5-10.1) Neutrophils (%) (Auto) 48.2 % (45.0-75.0) Lymphocytes (%) (Auto) 35.0 % (20.0-45.0) Monocytes (%) (Auto) 10.7 % (1.0-10.0) H Eosinophils (%) (Auto) 4.8 % (0.0-3.0) H Basophils (%) (Auto) 1.3 % (0.0-2.0) Sodium Level 138 MMOL/L (136-145) Potassium Level 3.4 MMOL/L (3.5-5.1) L Chloride Level 105 MMOL/L (98-107) Carbon Dioxide Level 24 MMOL/L (21-32) Anion Gap 9 mmol/L (5-15) Blood Urea Nitrogen 13 mg/dL (7-18) Creatinine 0.9 MG/DL (0.55-1.30) Estimat Glomerular Filtration Rate mL/min (>60) Glucose Level 116 MG/DL (74-106) H Calcium Level 8.7 MG/DL (8.5-10.1) Current Medications Medications (Trade) Dose Ordered Sig/Dorothea Route PRN Reason Start Time Stop Time Status Last Admin Dose Admin Acetaminophen (Tylenol) 650 mg Q4H PRN ORAL Mild Pain/Temp > 101 F 12/17/17 10:41 01/16/18 10:40 Amlodipine Besylate (Norvasc) 5 mg DAILY ORAL 12/18/17 09:00 01/17/18 08:59 12/21/17 08:24 Diazepam (Valium) 10 mg Q6H PRN ORAL For Anxiety 12/19/17 10:15 12/26/17 10:14 Docusate Sodium (Colace) 100 mg TWICE A DAY ORAL 12/20/17 09:00 01/19/18 08:59 12/21/17 08:23 Folic Acid (Folate) 1 mg DAILY ORAL 12/18/17 09:00 01/17/18 08:59 12/21/17 08:24 Magnesium Hydroxide (Mom) 30 ml DAILYPRN PRN ORAL Constipation 12/20/17 13:30 01/19/18 13:29 12/21/17 08:24 Multivitamins (Multivitamins) 1 tab DAILY ORAL 12/18/17 09:00 01/17/18 08:59 12/21/17 08:25 Pantoprazole (Protonix) 40 mg DAILY ORAL 12/18/17 09:00 01/17/18 08:59 12/21/17 08:24 Polyethylene Glycol (Miralax) 17 gm BEDTIME ORAL 12/19/17 21:00 01/18/18 20:59 12/19/17 21:03 Tamsulosin HCl (Flomax) 0.4 mg BEDTIME ORAL 12/17/17 21:00 01/16/18 20:59 12/19/17 21:03 Thiamine HCl (Vitamin B1) 100 mg DAILY ORAL 12/18/17 09:00 01/17/18 08:59 12/21/17 08:25 Vancomycin HCl (Vanco rx to dose) 1 ea DAILY PRN MISC Per rx protocol 12/17/17 12:30 01/16/18 12:29 Vancomycin/Sodium Chloride 250 ml @ 166.667 mls/hr Q12H IVPB 12/19/17 10:00 12/24/17 09:59 12/21/17 09:28 TORY KAPLAN Dec 21, 2017 10:10
[2017-12-21] MEDS ORDERED: VIBRAMYCIN100 MG ORAL (11:01)
[2017-12-21 12:00] VITALS: BP 129/73
--- NOTE | 2017-12-21 13:49 | GI Progress Note ---
Assessment/Plan Problems: (1) Constipated ICD Codes: K59.00 - Constipation, unspecified SNOMED: 02589445 (2) Anemia ICD Codes: D64.9 - Anemia, unspecified SNOMED: 472611900 Status: stable Status Narrative Discussed with Dr. Eng. Assessment/Plan symptomatic treatment monitor H&H, prn transfusions bowel regime ppi fu labs outpatient GI procedures Subjective Subjective constipated Objective Last 24 Hour Vital Signs Date Time Temp Pulse Resp B/P (MAP) Pulse Ox O2 Delivery O2 Flow Rate FiO2 12/21/17 08:24 73 145/82 12/21/17 08:00 97.9 73 20 145/82 97 Room Air 97.9 12/21/17 04:00 98.0 60 20 137/74 100 98.0 12/20/17 20:00 98.2 62 19 132/89 98 98.2 12/20/17 15:42 97.9 63 18 136/75 99 97.9 Intake and Output 12/20/17 12/21/17 19:00 07:00 Intake Total 1080 ml Output Total 800 ml Balance 280 ml Intake Oral 1080 ml Output Urine Total 800 ml # Voids 2 2 Laboratory Tests Test 12/21/17 07:40 White Blood Count 5.0 K/UL (4.8-10.8) Red Blood Count 4.46 M/UL (4.70-6.10) L Hemoglobin 13.3 G/DL (14.2-18.0) L Hematocrit 38.5 % (42.0-52.0) L Mean Corpuscular Volume 86 FL (80-99) Mean Corpuscular Hemoglobin 29.8 PG (27.0-31.0) Mean Corpuscular Hemoglobin Concent 34.6 G/DL (32.0-36.0) Red Cell Distribution Width 13.1 % (11.6-14.8) Platelet Count 316 K/UL (150-450) Mean Platelet Volume 6.6 FL (6.5-10.1) Neutrophils (%) (Auto) 48.2 % (45.0-75.0) Lymphocytes (%) (Auto) 35.0 % (20.0-45.0) Monocytes (%) (Auto) 10.7 % (1.0-10.0) H Eosinophils (%) (Auto) 4.8 % (0.0-3.0) H Basophils (%) (Auto) 1.3 % (0.0-2.0) Sodium Level 138 MMOL/L (136-145) Potassium Level 3.4 MMOL/L (3.5-5.1) L Chloride Level 105 MMOL/L (98-107) Carbon Dioxide Level 24 MMOL/L (21-32) Anion Gap 9 mmol/L (5-15) Blood Urea Nitrogen 13 mg/dL (7-18) Creatinine 0.9 MG/DL (0.55-1.30) Estimat Glomerular Filtration Rate mL/min (>60) Glucose Level 116 MG/DL (74-106) H Calcium Level 8.7 MG/DL (8.5-10.1) Height (Feet): 5 Height (Inches): 7.00 Weight (Pounds): 180 General Appearance: WD/WN, no apparent distress, alert Cardiovascular: normal rate Respiratory/Chest: normal breath sounds, no respiratory distress Abdominal Exam: normal bowel sounds, non tender, soft Extremities: normal range of motion, non-tender Smiley Jarrell N.P. Dec 21, 2017 13:49
--- NOTE | 2017-12-22 14:27 | General Progress Note ---
Assessment/Plan Status: stable, progressing Assessment/Plan alcohol dependence vs abuse thiamine folate Valium prn Subjective Date patient seen: Dec 21, 2017 Neurologic/Psychiatric: Reports: anxiety, depressed, emotional problems Allergies: Coded Allergies: No Known Allergies (Unverified , 11/03/17) Objective Height (Feet): 5 Height (Inches): 7.00 Weight (Pounds): 180 General Appearance: no apparent distress, alert Neurologic: oriented x 3, responsive, depressed affect Fela Bucoi M.D. Dec 22, 2017 14:27
--- NOTE | 2017-12-22 14:45 | Discharge Summary ---
Discharge Summary Discharge Summary Discharge Summary DATE OF ADMISSION: 12/17/2017 DATE OF DISCHARGE: 12/21/2017 CONSULTANTS: Dr. Fela Perdomo [facility] HOSPITAL COURSE: Patient is a 72-year-old male, was sent in from nursing facility for increased left foot discomfort and swelling. Patient had gradual onset of symptoms over the past 2-3 days. Denies any fever. He has history of diabetes type 2 and hypertension. On evaluation at ED, he was noted to have increased swelling of the left foot with discoloration and abrasions. He had brisk dorsalis pedis pulses. Blood work did not show any leukocytosis. He was admitted for cellulitis and hypokalemia. He was seen by continuous improvement engineer, patient has cellulitis of the left foot with x-ray showing soft tissue swelling, no other acute changes noted, no fracture, no dislocation. There was no surgical intervention indicated and lesion were left open to air. He was given wound care. He was given IV vancomycin. Patient had slight anemia. Anemia workup showed normal iron levels. TSH elevated with normal T4. He was given potassium replacements. Patient was irritable and has history of alcohol dependence versus abuse. He was given thiamine, multivitamin and folate. He had rash possibly secondary to dermatitis and skin dryness. IV vancomycin was transitioned to po doxycycline to be completed at the [facility]. FINAL DIAGNOSES: Cellulitis of the left foot Rash secondary to dermatitis and skin dryness Diabetes mellitus type 2 Hypertension Alcohol dependence and abuse Anemia Constipation DISPOSITION: Patient was discharged back to [facility] MEDICATIONS: Refer to Discharge Medication List. I have been assigned to dictate discharge summary on this account, and I was not involved in the patient's management. Carmen Méndez NP Dec 22, 2017 14:45
== END 2017-12-21 14:05 | DRG 603 ==
LOC: EDUNIT# 02:23 → EDBD 02:23 → EMR 02:42 → 4E 03:19 → EDBEDREQ 03:50
DX: L03.116 Cellulitis of left lower limb (principal); E11.9 Type 2 diabetes mellitus without complications; I10 Essential (primary) hypertension; L30.9 Dermatitis, unspecified; F10.20 Alcohol dependence, uncomplicated; E87.6 Hypokalemia; K21.9 Gastro-esophageal reflux disease without esophagitis; N40.0 Benign prostatic hyperplasia without lower urinary tract symptoms; R21 Rash and other nonspecific skin eruption; D64.9 Anemia, unspecified
CPT/HCPCS: 36415; 71045; 80048; 80053; 80202; 81003; 82378; 82550; 82553; 82607; 82728; 82746; 83540; 83550; 83605; 83735; 84100; 84439; 84443; 84484; 85025; 85044; 85610; 85730; 87040; 87081; 93005; 99285; J8499

== ENCOUNTER 2018-05-06 16:21 | Inpatient (IN) | payer MEDICARE, MEDICAID ==
[~2018-05-06] VITALS: Ht 170.2 cm; Wt 79.4 kg
[~2018-05-06 16:21] MED LIST changes: +MOM30 ML ORAL; +VIBRAMYCIN100 MG ORAL
[2018-05-06] MEDS ORDERED: Vancomycin 1.5gm/D5W 250ml 250 ML IVPB ONE (16:30)
[2018-05-06 17:46] LABS: BASOPHILS % (AUTO) 0.9 % (0.0-2.0); EOSINOPHILS % (AUTO) 2.1 % (0.0-3.0); HEMOGLOBIN 12.3 G/DL (14.2-18.0); LYMPHOCYTES % (AUTO) 23.5 % (20.0-45.0); MEAN CORPUSCULAR VOLUME 83 FL (80-99); MONOCYTES % (AUTO) 13.7 % (1.0-10.0); NEUTROPHILS % (AUTO) 59.8 % (45.0-75.0); PLATELET COUNT 247 K/UL (150-450); RED BLOOD COUNT 4.35 M/UL (4.70-6.10); RED CELL DISTRIBUTION WIDTH 12.5 % (11.6-14.8); WHITE BLOOD COUNT 11.6 K/UL (4.8-10.8)
--- NOTE | 2018-05-06 18:02 | Emergency Room Report ---
History of Present Illness General Chief Complaint: Skin Rash/Abscess Source: Patient, EMS Present Illness HPI 73-year-old male presents to the emergency department complaining of 10 out of 10 in severity pain, swelling, tenderness, erythema and increased temperature palpation to the base of the index finger and the right hand 2 days. Patient reports pain was exacerbated today and became tender. Patient denies fevers or chills. Denies recent notable injury/fall, Denies sustaining fight bite but states "anything could have happened to it". PMHx : DM-2, HTN, and BPH. Allergies: Coded Allergies: No Known Allergies (Unverified , 11/03/17) Patient History Past Medical History: none Past Surgical History: none Pertinent Family History: none Reviewed Nursing Documentation: PMH: Agreed; PSxH: Agreed Nursing Documentation-PMH Past Medical History: No History, Except For Hx Hypertension: Yes Hx Diabetes: Yes Hx Cancer: No Hx Gastrointestinal Problems: No Review of Systems All Other Systems: negative except mentioned in HPI Physical Exam Vital Signs Date Time Temp Pulse Resp B/P (MAP) Pulse Ox O2 Delivery O2 Flow Rate FiO2 05/06/18 16:17 99.1 72 16 125/65 98 Room Air 99.1 Sp02 EP Interpretation: reviewed, normal General Appearance: no apparent distress, alert, GCS 15, non-toxic Head: normocephalic, atraumatic ENT: hearing grossly normal, normal voice Neck: full range of motion Respiratory: lungs clear, normal breath sounds, speaking full sentences Cardiovascular #1: regular rate, rhythm, normal capillary refill Cardiovascular #2: 2+ radial (R), 2+ radial (L) Musculoskeletal: back normal, other - decreased ROM secondary to pain and swelling. , tender Neurologic: alert, oriented x3, responsive, motor strength/tone normal, sensory intact, speech normal, grossly normal Psychiatric: judgement/insight normal Skin: no rash, warm/dry, well hydrated, other - lymphangitis/erythematous streaking up the right UE to the biceps region. with small wound/lac/ abrasion overlying the base of the right index finger., abrasions - small wound/lac/ abrasion less than 1cm overlying the base of the right index finger. Medical Decision Making PA Attestation Dr. Fisher is my supervising Physician whom patient management has been discussed with. Diagnostic Impression: Primary Impression: Lymphangitis Additional Impression: Cellulitis Qualified Codes: L03.113 - Cellulitis of right upper limb ER Course Pt. is Full Code 73-year-old male presents to the emergency department complaining of 10 out of 10 in severity pain, swelling, tenderness, erythema and increased temperature palpation to the base of the index finger and the right hand 2 days. Patient reports pain was exacerbated today and became tender. Patient denies fevers or chills. Denies recent notable injury/fall, Denies sustaining fight bite but states "anything could have happened to it". PMHx : DM-2, HTN, and BPH. Ddx considered but are not limited to cellulitis, paronychia, eponychia, lymphangitis, abscess, fracture, d/L, gout Vital signs: are WNL, pt. is afebrile H&PE are most consistent with Celllulitis and lymphangitis of the right hand with small wound/lac overlying the base of the right index finger. ORDERS: -CBC: wbc's elevated 11.6, mild anemia -CMP: Potassium 3.2 , otherwise normal electrolytes and renal function. -Lactic Acid: WNL -Blood Cultures x 2: Pending -Hand X-ray: unremarkable other than ST swelling. ED INTERVENTIONS: - Tdap -1.5g Vancomycin IV -2mg IV Morphine - 20Meq KCl PO DISPOSITION: at this time pt. will be admitted to Dr. Slater for cellulitis and lymphangitis of the right hand. Dr. Slater agreed to admit the pt. and to continue pt. care management. Labs Test 05/06/18 17:30 White Blood Count 11.6 K/UL (4.8-10.8) Red Blood Count 4.35 M/UL (4.70-6.10) Hemoglobin 12.3 G/DL (14.2-18.0) Hematocrit 36.0 % (42.0-52.0) Mean Corpuscular Volume 83 FL (80-99) Mean Corpuscular Hemoglobin 28.4 PG (27.0-31.0) Mean Corpuscular Hemoglobin Concent 34.3 G/DL (32.0-36.0) Red Cell Distribution Width 12.5 % (11.6-14.8) Platelet Count 247 K/UL (150-450) Mean Platelet Volume 7.0 FL (6.5-10.1) Neutrophils (%) (Auto) 59.8 % (45.0-75.0) Lymphocytes (%) (Auto) 23.5 % (20.0-45.0) Monocytes (%) (Auto) 13.7 % (1.0-10.0) Eosinophils (%) (Auto) 2.1 % (0.0-3.0) Basophils (%) (Auto) 0.9 % (0.0-2.0) Sodium Level 138 MMOL/L (136-145) Potassium Level 3.2 MMOL/L (3.5-5.1) Chloride Level 103 MMOL/L (98-107) Carbon Dioxide Level 27 MMOL/L (21-32) Anion Gap 8 mmol/L (5-15) Blood Urea Nitrogen 12 mg/dL (7-18) Creatinine 0.9 MG/DL (0.55-1.30) Estimat Glomerular Filtration Rate mL/min (>60) Glucose Level 100 MG/DL (74-106) Lactic Acid Level 0.80 mmol/L (0.4-2.0) Calcium Level 8.5 MG/DL (8.5-10.1) Total Bilirubin 0.7 MG/DL (0.2-1.0) Aspartate Amino Transf (AST/SGOT) 13 U/L (15-37) Alanine Aminotransferase (ALT/SGPT) 20 U/L (12-78) Alkaline Phosphatase 101 U/L (46-116) Total Protein 7.3 G/DL (6.4-8.2) Albumin 3.2 G/DL (3.4-5.0) Globulin 4.1 g/dL Albumin/Globulin Ratio 0.8 (1.0-2.7) EKG Diagnostic Results EP Interpretation: Dr. Fisher Rate: normal - 63 BPM Rhythm: NSR ST Segments: no acute changes ASA given to the pt in ED: No PA Scribe Text This Interpretation was scribed by DINORAH Carpenter. Other X-Ray Diagnostic Results Other X-Ray Diagnostic Results : # of Views/Limited Vs Complete: 3 View Indication: Pain EP Interpretation: Yes PA Xray: Interpretation reviewed, by supervising MD, and agrees with findings. Interpretation: no dislocation, no fractures, other - ST swelling noted Impression: No acute disease Electronically Signed by: Sahwnee Carpenter PA-C Last Vital Signs Date Time Temp Pulse Resp B/P (MAP) Pulse Ox O2 Delivery O2 Flow Rate FiO2 05/06/18 16:17 99.1 72 16 125/65 98 Room Air 99.1 Disposition: ADMITTED INPATIENT Condition: Serious Referrals: Ricardo Slater MD (PCP) Shawnee Carpenter May 06, 2018 18:02
[2018-05-06 18:24] LABS: ANION GAP 8 mmol/L (5-15); BLOOD UREA NITROGEN 12 mg/dL (7-18); CALCIUM 8.5 MG/DL (8.5-10.1); CARBON DIOXIDE 27 MMOL/L (21-32); CHLORIDE 103 MMOL/L (98-107); CREATININE 0.9 MG/DL (0.55-1.30); POTASSIUM 3.2 MMOL/L (3.5-5.1); SODIUM 138 MMOL/L (136-145)
[2018-05-06 18:29] LABS: ALANINE AMINOTRANSFERASE 20 U/L (12-78); ALBUMIN 3.2 G/DL (3.4-5.0); ALBUMIN/GLOBULIN RATIO 0.8 (1.0-2.7); ALKALINE PHOSPHATASE 101 U/L (46-116); ASPARTATE AMINO TRANSFERASE 13 U/L (15-37); BILIRUBIN,TOTAL 0.7 MG/DL (0.2-1.0)
[2018-05-06 18:40] VITALS: BP 148/69
[2018-05-06] MEDS ORDERED: Morphine Sulfate 2mg/ml Inj IVP ONE (18:45)
[2018-05-06] MEDS ORDERED: Tetanus/Diptheria/Pertussis Vaccine 0.5ml Syr IM ONE (18:45)
[2018-05-06 21:00] VITALS: BP 120/60
[2018-05-07] VITALS: BP 130/71
[2018-05-07 04:00] VITALS: BP 141/82
[2018-05-07] MEDS: NovoLOG Insulin Flexpen SUBQ SCH ×3 (06:18→17:08)
[2018-05-07] MEDS ORDERED: NovoLOG Insulin Flexpen SUBQ SCH (06:30)
[2018-05-07 08:00] VITALS: BP 124/70
[2018-05-07] MEDS: Thiamine 100mg tab ORAL SCH (08:48)
[2018-05-07] MEDS: Multivitamin w/Minerals tab ORAL SCH (08:48)
[2018-05-07] MEDS ORDERED: Docusate 100mg cap ORAL SCH (09:00)
[2018-05-07] MEDS ORDERED: Milk of Magnesia 30ml Ud ORAL SCH (09:00)
--- NOTE | 2018-05-07 11:00 | Consultation ---
Consult Note Consult Note 73-year-old male presents to the emergency department complaining of 10 out of 10 in severity pain, swelling, tenderness, erythema and increased temperature palpation to the base of the index finger and the right hand 2 days. Patient reports pain was exacerbated today and became tender. Patient denies fevers or chills. Denies recent notable injury/fall, Denies sustaining fight bite but states "anything could have happened to it". PMHx : DM-2, HTN, and BPH. No Known Allergies (Unverified , 11/03/17) Past Medical History: No History, Except For Hx Hypertension: Yes Hx Diabetes: Yes interviewed examined data reviewed Assessment/Plan Lymphangitis Cellulitis Low K Anemia K supplements per order Anemia Duncan Barnes MD May 07, 2018 11:00
[2018-05-07] MEDS ORDERED: Milk of Magnesia 30ml Ud ORAL PRN (11:07)
[2018-05-07 12:00] VITALS: BP 122/66
[2018-05-07] MEDS: Vancomycin 750mg/NS 250ml IVPB SCH ×2 (12:00→23:12)
[2018-05-07 12:28] LABS: APPEARANCE,URINE SLIGHTLY CLOUDY; BILIRUBIN, URINE NEGATIVE (NEGATIVE); GLUCOSE, URINE (UA) NEGATIVE (NEGATIVE); KETONES,URINE NEGATIVE (NEGATIVE); LEUKOCYTE ESTERASE ,URINE NEGATIVE (NEGATIVE); NITRITE,URINE NEGATIVE (NEGATIVE); PH,URINE 8 (4.5-8.0); PROTEIN,URINE NEGATIVE (NEGATIVE); UROBILINOGEN,URINE NORMAL MG/DL (0.0-1.0)
[2018-05-07 12:36] LABS: COLOR,URINE YELLOW
[2018-05-07] MEDS: Docusate 100mg cap ORAL SCH ×2 (12:42→17:05)
[2018-05-07] MEDS ORDERED: NS 275ml ONE (15:19)
[2018-05-07] MEDS ORDERED: Tubing IV Secondary IV ONE (15:19)
[2018-05-07 16:00] VITALS: BP 142/77
[2018-05-07 20:00] VITALS: BP 133/78
--- NOTE | 2018-05-07 21:00 | Consultation ---
DATE OF CONSULTATION: 05/07/2018 INFECTIOUS DISEASES CONSULTATION CONSULTING PHYSICIAN: Tello Gomes M.D. PRIMARY ATTENDING: Ricardo Slater M.D. REASON FOR CONSULTATION: Right hand cellulitis. HISTORY OF PRESENT ILLNESS: This is a 73-year-old man, who is a group home resident admitted last evening complaining of right hand pain and swelling that started two days before admission. The patient does not remember any accident and trauma to the hand. Pain was 10/10. PAST MEDICAL HISTORY: Significant for hypertension, diabetes mellitus, and BPH. MEDICATIONS: Flomax, vancomycin, amlodipine, Colace, folic acid, milk of magnesium, multivitamin, thiamine, Protonix, insulin, and Tylenol. ALLERGIES: No known drug allergy. SOCIAL HISTORY: He lives in a nursing facility, . He has history of alcohol abuse in the past. REVIEW OF SYSTEMS: No fever. No chills. No sore throat. No coughing. No chest pain. No nausea. No vomiting. No diarrhea. The only complaint is severe pain and tenderness in the right hand. PHYSICAL EXAMINATION: VITAL SIGNS: Temperature 98.2 degrees, pulse 66, and blood pressure 124/70. GENERAL APPEARANCE: No acute distress. Awake and alert. HEAD AND NECK: [place] conjunctivae. He has no teeth and no denture. HEART: Regular. Normal rate. LUNGS: Clear. ABDOMEN: Soft and nontender. EXTREMITIES: Have swelling, erythema, and tenderness in right hand area, more in the base of index and third finger. LABORATORY AND DIAGNOSTIC DATA: Sodium 138, potassium 3.2, chloride 103, bicarbonate 27, BUN 12, and creatinine 0.9. WBC is 11.6, hemoglobin 12.3, hematocrit 36, and platelets are 247,000. Lactic acid is 0.8. The patient had a hand x-ray that showed no fracture, soft tissue swelling. IMPRESSION: Cellulitis of right hand. The patient had a recent history of cellulitis in the foot area, has diabetes mellitus, hypertension, and history of alcohol abuse. RECOMMENDATION: We will continue vancomycin. Needs evaluation by surgeon for early abscess. At the end of my exam, I thank Dr. Slater for involving me in the care of this patient. Tello Gomes M.D. DR: Nayan JOB#: [id number] CC:
[2018-05-07] MEDS: Tamsulosin 0.4mg cap ORAL SCH (21:02)
[2018-05-08] VITALS: BP 142/79
[2018-05-08 04:00] VITALS: BP 122/66
[2018-05-08 06:24] LABS: BASOPHILS % (AUTO) 0.6 % (0.0-2.0); EOSINOPHILS % (AUTO) 4.3 % (0.0-3.0); HEMATOCRIT 37.4 % (42.0-52.0); HEMOGLOBIN 12.2 G/DL (14.2-18.0); LYMPHOCYTES % (AUTO) 25.8 % (20.0-45.0); MEAN CORPUSCULAR VOLUME 84 FL (80-99); MONOCYTES % (AUTO) 10.3 % (1.0-10.0); NEUTROPHILS % (AUTO) 58.9 % (45.0-75.0); PLATELET COUNT 255 K/UL (150-450); RED BLOOD COUNT 4.46 M/UL (4.70-6.10); RED CELL DISTRIBUTION WIDTH 12.7 % (11.6-14.8); WHITE BLOOD COUNT 8.4 K/UL (4.8-10.8)
[2018-05-08 06:57] LABS: ALANINE AMINOTRANSFERASE 21 U/L (12-78); ALBUMIN 2.7 G/DL (3.4-5.0); ALBUMIN/GLOBULIN RATIO 0.6 (1.0-2.7); ALKALINE PHOSPHATASE 97 U/L (46-116); ANION GAP 9 mmol/L (5-15); ASPARTATE AMINO TRANSFERASE 15 U/L (15-37); BILIRUBIN,TOTAL 1.1 MG/DL (0.2-1.0); BLOOD UREA NITROGEN 7 mg/dL (7-18); CALCIUM 8.4 MG/DL (8.5-10.1); CARBON DIOXIDE 24 MMOL/L (21-32); CHLORIDE 106 MMOL/L (98-107); CHOLESTEROL 126 MG/DL (< 200); CREATININE 0.7 MG/DL (0.55-1.30); FERRITIN 139 NG/ML (8-388); GAMMA GLUTAMYL TRANSPEPTIDASE 21 U/L (5-85); HDL CHOLESTEROL 40 MG/DL (40-60); PHOSPHORUS 3.3 MG/DL (2.5-4.9); POTASSIUM 3.4 MMOL/L (3.5-5.1); SODIUM 139 MMOL/L (136-145); TRIGLYCERIDES 82 MG/DL (30-150)
[2018-05-08 07:01] LABS: BILIRUBIN,DIRECT 0.1 MG/DL (0.0-0.3)
[2018-05-08 07:34] LABS: % IRON SATURATION 19 % (15-50); IRON 39 ug/dL (50-175); TOTAL IRON BINDING CAPACITY 206 ug/dL (250-450)
[2018-05-08 08:00] VITALS: BP 125/68
[2018-05-08] MEDS: Thiamine 100mg tab ORAL SCH (08:52)
[2018-05-08] MEDS: Docusate 100mg cap ORAL SCH ×3 (08:52→18:11)
[2018-05-08] MEDS: Multivitamin w/Minerals tab ORAL SCH (08:52)
[2018-05-08] MEDS: NovoLOG Insulin Flexpen SUBQ SCH ×2 (08:53→18:11)
--- NOTE | 2018-05-08 09:27 | Diagnostic Imaging Report ---
Indication: Reason For Exam: PAIN Technique: 3 or 4 views right hand Comparison: none Findings: No acute fractures. No dislocations. There is degenerative narrowing, mild, of the second through fifth distal interphalangeal joints and of the first metacarpophalangeal joint. Impression: No acute bony trauma Mild degenerative changes, as described This agrees with the preliminary interpretation provided overnight by [facility] teleradiology service.
[2018-05-08] MEDS: Vancomycin 750mg/NS 250ml IVPB SCH (11:21)
[2018-05-08 12:00] VITALS: BP 148/75
--- NOTE | 2018-05-08 12:24 | Nephrology Progress Note ---
Assessment/Plan Problem List: (1) Anemia (2) Lymphangitis (3) Cellulitis (4) Hypokalemia Assessment Lymphangitis Cellulitis Low K Anemia Plan K supplements per order Anemia muir Subjective ROS Limited/Unobtainable: No Constitutional: Reports: malaise Objective Objective Last 24 Hour Vital Signs Date Time Temp Pulse Resp B/P (MAP) Pulse Ox O2 Delivery O2 Flow Rate FiO2 05/08/18 09:00 Room Air 05/08/18 08:52 66 125/68 05/08/18 08:00 98.7 66 20 125/68 (87) 95 98.7 05/08/18 04:00 98.2 65 19 122/66 (84) 94 98.2 05/08/18 00:00 98.2 65 19 142/79 (100) 97 98.2 05/07/18 21:00 Room Air 05/07/18 20:00 97.0 69 19 133/78 (96) 98 97.0 05/07/18 18:14 98.4 98.4 05/07/18 17:04 101.4 05/07/18 16:34 101.4 05/07/18 16:00 101.4 71 18 142/77 (98) 98 101.4 Intake and Output 05/07/18 05/08/18 19:00 07:00 Intake Total 730.000 ml 250.000 ml Output Total 500 ml Balance 230.000 ml 250.000 ml Intake Oral 480 ml IV Total 250.000 ml 250.000 ml Output Urine Total 500 ml # Voids 2 Laboratory Tests 05/08/18 05:00: White Blood Count 8.4, Red Blood Count 4.46L, Hemoglobin 12.2L, Hematocrit 37.4L , Mean Corpuscular Volume 84, Mean Corpuscular Hemoglobin 27.4, Mean Corpuscular Hemoglobin Concent 32.6, Red Cell Distribution Width 12.7, Platelet Count 255, Mean Platelet Volume 7.4, Neutrophils (%) (Auto) 58.9, Lymphocytes (% ) (Auto) 25.8, Monocytes (%) (Auto) 10.3H, Eosinophils (%) (Auto) 4.3H, Basophils (%) (Auto) 0.6, Sodium Level 139, Potassium Level 3.4L, Chloride Level 106, Carbon Dioxide Level 24, Anion Gap 9, Blood Urea Nitrogen 7, Creatinine 0.7, Estimat Glomerular Filtration Rate , Glucose Level 88, Hemoglobin A1c 6.0, Uric Acid 4.4, Calcium Level 8.4L, Phosphorus Level 3.3, Magnesium Level 2.0, Iron Level 39L, Total Iron Binding Capacity 206L, Percent Iron Saturation 19, Unsaturated Iron Binding 167, Ferritin 139, Total Bilirubin 1.1H, Direct Bilirubin 0.1, Gamma Glutamyl Transpeptidase 21, Aspartate Amino Transf (AST/SGOT) 15, Alanine Aminotransferase (ALT/SGPT) 21, Alkaline Phosphatase 97, Pro-B-Type Natriuretic Peptide 221H, Total Protein 7.3, Albumin 2.7L, Globulin 4.6, Albumin/Globulin Ratio 0.6L, Triglycerides Level 82, Cholesterol Level 126, LDL Cholesterol 79, HDL Cholesterol 40, Cholesterol/HDL Ratio 3.2L, Vitamin B12 Level 387, Folate 47.0, Thyroid Stimulating Hormone (TSH ) 2.546 Height (Feet): 5 Height (Inches): 7.00 Weight (Pounds): 180 General Appearance: no apparent distress Cardiovascular: normal rate Respiratory/Chest: decreased breath sounds Abdomen: soft Genitourinary/Rectal: other - scrotal swelling Duncan Szymanski MD May 08, 2018 12:24
--- NOTE | 2018-05-08 13:00 | Infectious Diseases Prog Note ---
Assessment/Plan Assessment/Plan A; R hand Cellulitis improving ? abscess of hand DM HPN P; Continue IV Vancomycin Surgical evaluation by Joby Kevin is pending Subjective ROS Limited/Unobtainable: No Constitutional: Reports: fever, other - last evening Respiratory: Reports: no symptoms Gastrointestinal/Abdominal: Reports: no symptoms Musculoskeletal: Reports: pain, other - in right hand Allergies: Coded Allergies: No Known Allergies (Unverified , 11/03/17) Objective Vital Signs Last 24 Hour Vital Signs Date Time Temp Pulse Resp B/P (MAP) Pulse Ox O2 Delivery O2 Flow Rate FiO2 05/08/18 12:00 98.2 70 19 148/75 (99) 98 98.2 05/08/18 09:00 Room Air 05/08/18 08:52 66 125/68 05/08/18 08:00 98.7 66 20 125/68 (87) 95 98.7 05/08/18 04:00 98.2 65 19 122/66 (84) 94 98.2 05/08/18 00:00 98.2 65 19 142/79 (100) 97 98.2 05/07/18 21:00 Room Air 05/07/18 20:00 97.0 69 19 133/78 (96) 98 97.0 05/07/18 18:14 98.4 98.4 05/07/18 17:04 101.4 05/07/18 16:34 101.4 05/07/18 16:00 101.4 71 18 142/77 (98) 98 101.4 Height (Feet): 5 Height (Inches): 7.00 Weight (Pounds): 180 General Appearance: no acute distress HEENT: mucous membranes moist Respiratory/Chest: lungs clear Cardiovascular: normal rate Abdomen: soft, non tender Extremities: no edema Skin: other - tenderness, pain swelling of right hand morein knuckle Neurologic/Psychiatric: alert, oriented x 3, responsive Microbiology Date/Time Source Procedure Growth Status 05/06/18 17:30 Blood Blood Culture - Preliminary NO GROWTH AFTER 24 HOURS Resulted 05/06/18 17:15 Blood Blood Culture - Preliminary NO GROWTH AFTER 24 HOURS Resulted 05/06/18 18:07 Nasal Nares MRSA Culture - Final NO METHICILLIN RESISTANT STAPH AUREUS... Complete Laboratory Tests Test 05/08/18 05:00 White Blood Count 8.4 K/UL (4.8-10.8) Red Blood Count 4.46 M/UL (4.70-6.10) L Hemoglobin 12.2 G/DL (14.2-18.0) L Hematocrit 37.4 % (42.0-52.0) L Mean Corpuscular Volume 84 FL (80-99) Mean Corpuscular Hemoglobin 27.4 PG (27.0-31.0) Mean Corpuscular Hemoglobin Concent 32.6 G/DL (32.0-36.0) Red Cell Distribution Width 12.7 % (11.6-14.8) Platelet Count 255 K/UL (150-450) Mean Platelet Volume 7.4 FL (6.5-10.1) Neutrophils (%) (Auto) 58.9 % (45.0-75.0) Lymphocytes (%) (Auto) 25.8 % (20.0-45.0) Monocytes (%) (Auto) 10.3 % (1.0-10.0) H Eosinophils (%) (Auto) 4.3 % (0.0-3.0) H Basophils (%) (Auto) 0.6 % (0.0-2.0) Sodium Level 139 MMOL/L (136-145) Potassium Level 3.4 MMOL/L (3.5-5.1) L Chloride Level 106 MMOL/L (98-107) Carbon Dioxide Level 24 MMOL/L (21-32) Anion Gap 9 mmol/L (5-15) Blood Urea Nitrogen 7 mg/dL (7-18) Creatinine 0.7 MG/DL (0.55-1.30) Estimat Glomerular Filtration Rate mL/min (>60) Glucose Level 88 MG/DL (74-106) Hemoglobin A1c 6.0 % (4.3-6.0) Uric Acid 4.4 MG/DL (2.6-7.2) Calcium Level 8.4 MG/DL (8.5-10.1) L Phosphorus Level 3.3 MG/DL (2.5-4.9) Magnesium Level 2.0 MG/DL (1.8-2.4) Iron Level 39 ug/dL (50-175) L Total Iron Binding Capacity 206 ug/dL (250-450) L Percent Iron Saturation 19 % (15-50) Unsaturated Iron Binding 167 ug/dL (112-346) Ferritin 139 NG/ML (8-388) Total Bilirubin 1.1 MG/DL (0.2-1.0) H Direct Bilirubin 0.1 MG/DL (0.0-0.3) Gamma Glutamyl Transpeptidase 21 U/L (5-85) Aspartate Amino Transf (AST/SGOT) 15 U/L (15-37) Alanine Aminotransferase (ALT/SGPT) 21 U/L (12-78) Alkaline Phosphatase 97 U/L (46-116) Pro-B-Type Natriuretic Peptide 221 pg/mL (0-125) H Total Protein 7.3 G/DL (6.4-8.2) Albumin 2.7 G/DL (3.4-5.0) L Globulin 4.6 g/dL Albumin/Globulin Ratio 0.6 (1.0-2.7) L Triglycerides Level 82 MG/DL (30-150) Cholesterol Level 126 MG/DL (< 200) LDL Cholesterol 79 mg/dL (<100) HDL Cholesterol 40 MG/DL (40-60) Cholesterol/HDL Ratio 3.2 (3.3-4.4) L Vitamin B12 Level 387 PG/ML (193-986) Folate 47.0 NG/ML (8.6-58.9) Thyroid Stimulating Hormone (TSH) 2.546 uiU/mL (0.358-3.740) Current Medications Medications (Trade) Dose Ordered Sig/[place] Route PRN Reason Start Time Stop Time Status Last Admin Dose Admin Acetaminophen (Tylenol) 650 mg Q4H PRN ORAL Fever/Headache/Mild Pain 05/06/18 21:45 06/05/18 21:44 05/07/18 16:34 Amlodipine Besylate (Norvasc) 5 mg DAILY ORAL 05/08/18 09:00 06/06/18 08:59 05/08/18 08:52 Dextrose (Dextrose 50%) 25 ml STAT PRN IV Hypoglycemia 05/06/18 21:45 06/05/18 21:44 Dextrose (Dextrose 50%) 50 ml STAT PRN IV Hypoglycemia 05/06/18 21:45 06/05/18 21:44 Docusate Sodium (Colace) 100 mg TID ORAL 05/07/18 13:00 06/06/18 08:59 05/08/18 08:52 Insulin Aspart (NovoLOG) BID SUBQ 05/07/18 06:30 06/06/18 06:29 05/08/18 08:53 Magnesium Hydroxide (Mom) 30 ml QHS PRN ORAL constipation 05/07/18 11:07 06/06/18 11:06 Multivitamins Therapeutic (Therapeutic Multivitamin) 1 ea DAILY ORAL 05/07/18 09:00 06/06/18 08:59 05/08/18 08:52 Pantoprazole (Protonix) 40 mg ACBREAKFAST ORAL 05/07/18 06:30 06/06/18 06:29 05/08/18 05:51 Potassium Chloride (K-Dur) 40 meq BID ORAL 05/08/18 09:00 06/06/18 11:06 05/08/18 08:52 Tamsulosin HCl (Flomax) 0.4 mg BEDTIME ORAL 05/07/18 21:00 06/06/18 20:59 05/07/18 21:02 Thiamine HCl (Vitamin B1) 100 mg DAILY ORAL 05/07/18 09:00 06/06/18 08:59 05/08/18 08:52 Vancomycin HCl (Vanco rx to dose) 1 ea DAILY PRN MISC Per rx protocol 05/07/18 10:30 06/06/18 10:29 Vancomycin/Sodium Chloride 250 ml @ 166.667 mls/hr Q12H IVPB 05/07/18 11:00 05/12/18 10:59 05/08/18 11:21 Tello Gomes MD May 08, 2018 13:00
--- NOTE | 2018-05-08 13:15 | History and Physical Report ---
DATE OF ADMISSION: 05/06/2018 NOTE: "POOR AUDIO QUALITY" REASON FOR ADMISSION: The patient is admitted for cellulitis of the right hand and low potassium. HISTORY OF PRESENT ILLNESS: fractures on the right hand according to the ER doctor. The patient there does not seem to be any abscess formation on the right hand at this point. We will admit for IV antibiotics. The patient complains of right hand pain for the past two days. The patient is admitted for cellulitis of the right hand and low potassium. The patient denies nausea, vomiting, or diarrhea. No fever. No shortness of breath. Denies cough. Denies abdominal pain. Denies chills. PAST MEDICAL HISTORY: The patient has hypertension, has history of constipation, has history of GERD, has history of BPH, history of psychosis, anemia, hepatitis C. PAST SURGICAL HISTORY: None. ALLERGIES: None. MEDICATIONS: amlodipine, Colace, folic acid, multivitamin, Protonix, Flomax, and thiamine. FAMILY HISTORY: Noncontributory. SOCIAL HISTORY: History of drug abuse. History of alcohol abuse. Denies history of smoking. Lives in a shelter. REVIEW OF SYSTEMS: HEENT: Denies headaches. RESPIRATORY: No shortness of breath. Denies cough. CARDIOVASCULAR: Denies chest pain or orthopnea. GASTROINTESTINAL: Denies nausea, vomiting, diarrhea. EXTREMITIES: Complains of right hand pain for 2 days. PHYSICAL EXAMINATION: GENERAL: The patient is not in any distress. VITAL SIGNS: Temperature is 98.2, pulse is 62, blood pressure 130/71. HEENT: PERRLA. NECK: Supple. No lymphadenopathy. CHEST: Clear to auscultation. GASTROINTESTINAL: Soft, nontender, and nondistended. No organomegaly. EXTREMITIES: No edema. Moves all four extremities. NEUROLOGIC: Sensory intact. Reflexes on both sides. SKIN: The patient does have erythema and tender to touch on the right hand. The right hand is also erythematous, painful, and swollen. LABORATORY AND DIAGNOSTIC DATA: WBC of 11.6, hemoglobin 12.3, and platelets of 267,000. Sodium 138, potassium 3.2, BUN of 12, creatinine 0.9. ASSESSMENT AND PLAN: The patient is admitted for right hand cellulitis. The patient also has behavioral issues and has low potassium. I have consulted Dr. Szymanski, Dr. Tello Gomes, Dr. Bucio for the above-mentioned diagnoses and treatment. Ricardo Slater M.D. DR: Belle JOB#: [id number] CC:
[2018-05-08] MEDS ORDERED: Gadavist 7.5mMol/7.5ml vial IV PRN (14:30)
--- NOTE | 2018-05-08 14:34 | Consultation ---
History of Present Illness General Date patient seen: May 08, 2018 Chief Complaint: Skin Rash/Abscess Reason for Consultation: right hand cellulitis Present Illness HPI 73[facility] resident noted to have worsening right hand pain and swelling. significant cellulitis noted and not improved with outpatient care. patient admitted for care and management to [facility] given worsening extremity/hand. noted to have right hand second digit cellulitis with noted worsening cellulitis of surrounding tissues. Seen by ID and surgery called to evaluate for possible abscess. patient seen, chart reviewed, patient examined. plain films noted. patients states that he is unsure about exactly how long cellulitis has been worsening for. states possible weeks. no drainage. pain 10/10 with palpation. Allergies: Coded Allergies: No Known Allergies (Unverified , 11/03/17) Medication History Scheduled Amlodipine Besylate (Norvasc), 5 MG ORAL DAILY, (Reported) Docusate Sodium* (Docusate Sodium*), 100 MG ORAL DAILY, (Reported) Doxycycline Hyclate* (Vibramycin*), 100 MG ORAL EVERY 12 HOURS, (Reported) Folic Acid* (Folic Acid*), 1 MG ORAL DAILY, (Reported) Magnesium Hydroxide (Milk of Magnesia), 30 ML ORAL DAILY, (Reported) Multivitamin With Minerals (Multivitamins With Minerals*), 1 TAB ORAL DAILY, ( Reported) Pantoprazole Sodium (Protonix), 40 MG GT DAILY, (Reported) Tamsulosin Hcl (Tamsulosin Hcl*), 0.4 MG ORAL BEDTIME, (Reported) Thiamine Hcl* (Vitamin B-1*), 100 MG ORAL DAILY, (Reported) Scheduled PRN Acetaminophen* (Acetaminophen 325MG Tablet*), 650 MG ORAL Q4H PRN for For Pain, (Reported) Acetaminophen* (Acetaminophen 325MG Tablet*), 650 MG ORAL Q4H PRN for Fever/ Headache/Mild Pain, (Reported) Patient History History Provided By: Patient, Medical Record, PMD Healthcare decision maker Resuscitation status Full Code Advanced Directive on File Past Medical/Surgical History Past Medical/Surgical History: (1) Constipated (2) Lymphangitis (3) Anemia (4) Cellulitis (5) Hypokalemia Review of Systems All Other Systems: negative except mentioned in HPI Physical Exam General Appearance: no apparent distress, alert Lines, tubes and drains: peripheral HEENT: mucous membranes moist, PERRL Neck: normal inspection Respiratory/Chest: normal breath sounds, no respiratory distress, no accessory muscle use Cardiovascular/Chest: normal peripheral pulses, normal rate Abdomen: normal bowel sounds, non tender, soft, no organomegaly Extremities: other - right hand second digit cellulitis at PIP/phalynx area with noted surrounding cellulitis tender. warm Skin Exam: other Neurologic: alert, responsive Last 24 Hour Vital Signs Date Time Temp Pulse Resp B/P (MAP) Pulse Ox O2 Delivery O2 Flow Rate FiO2 05/08/18 12:00 98.2 70 19 148/75 (99) 98 98.2 05/08/18 09:00 Room Air 05/08/18 08:52 66 125/68 05/08/18 08:00 98.7 66 20 125/68 (87) 95 98.7 05/08/18 04:00 98.2 65 19 122/66 (84) 94 98.2 05/08/18 00:00 98.2 65 19 142/79 (100) 97 98.2 05/07/18 21:00 Room Air 05/07/18 20:00 97.0 69 19 133/78 (96) 98 97.0 05/07/18 18:14 98.4 98.4 05/07/18 17:04 101.4 05/07/18 16:34 101.4 05/07/18 16:00 101.4 71 18 142/77 (98) 98 101.4 Intake and Output 05/07/18 05/08/18 19:00 07:00 Intake Total 730.000 ml 250.000 ml Output Total 500 ml Balance 230.000 ml 250.000 ml Intake Oral 480 ml IV Total 250.000 ml 250.000 ml Output Urine Total 500 ml # Voids 2 Laboratory Tests Test 05/08/18 05:00 White Blood Count 8.4 K/UL (4.8-10.8) Red Blood Count 4.46 M/UL (4.70-6.10) L Hemoglobin 12.2 G/DL (14.2-18.0) L Hematocrit 37.4 % (42.0-52.0) L Mean Corpuscular Volume 84 FL (80-99) Mean Corpuscular Hemoglobin 27.4 PG (27.0-31.0) Mean Corpuscular Hemoglobin Concent 32.6 G/DL (32.0-36.0) Red Cell Distribution Width 12.7 % (11.6-14.8) Platelet Count 255 K/UL (150-450) Mean Platelet Volume 7.4 FL (6.5-10.1) Neutrophils (%) (Auto) 58.9 % (45.0-75.0) Lymphocytes (%) (Auto) 25.8 % (20.0-45.0) Monocytes (%) (Auto) 10.3 % (1.0-10.0) H Eosinophils (%) (Auto) 4.3 % (0.0-3.0) H Basophils (%) (Auto) 0.6 % (0.0-2.0) Sodium Level 139 MMOL/L (136-145) Potassium Level 3.4 MMOL/L (3.5-5.1) L Chloride Level 106 MMOL/L (98-107) Carbon Dioxide Level 24 MMOL/L (21-32) Anion Gap 9 mmol/L (5-15) Blood Urea Nitrogen 7 mg/dL (7-18) Creatinine 0.7 MG/DL (0.55-1.30) Estimat Glomerular Filtration Rate mL/min (>60) Glucose Level 88 MG/DL (74-106) Hemoglobin A1c 6.0 % (4.3-6.0) Uric Acid 4.4 MG/DL (2.6-7.2) Calcium Level 8.4 MG/DL (8.5-10.1) L Phosphorus Level 3.3 MG/DL (2.5-4.9) Magnesium Level 2.0 MG/DL (1.8-2.4) Iron Level 39 ug/dL (50-175) L Total Iron Binding Capacity 206 ug/dL (250-450) L Percent Iron Saturation 19 % (15-50) Unsaturated Iron Binding 167 ug/dL (112-346) Ferritin 139 NG/ML (8-388) Total Bilirubin 1.1 MG/DL (0.2-1.0) H Direct Bilirubin 0.1 MG/DL (0.0-0.3) Gamma Glutamyl Transpeptidase 21 U/L (5-85) Aspartate Amino Transf (AST/SGOT) 15 U/L (15-37) Alanine Aminotransferase (ALT/SGPT) 21 U/L (12-78) Alkaline Phosphatase 97 U/L (46-116) Pro-B-Type Natriuretic Peptide 221 pg/mL (0-125) H Total Protein 7.3 G/DL (6.4-8.2) Albumin 2.7 G/DL (3.4-5.0) L Globulin 4.6 g/dL Albumin/Globulin Ratio 0.6 (1.0-2.7) L Triglycerides Level 82 MG/DL (30-150) Cholesterol Level 126 MG/DL (< 200) LDL Cholesterol 79 mg/dL (<100) HDL Cholesterol 40 MG/DL (40-60) Cholesterol/HDL Ratio 3.2 (3.3-4.4) L Vitamin B12 Level 387 PG/ML (193-986) Folate 47.0 NG/ML (8.6-58.9) Thyroid Stimulating Hormone (TSH) 2.546 uiU/mL (0.358-3.740) Height (Feet): 5 Height (Inches): 7.00 Weight (Pounds): 180 Medications Current Medications Medications (Trade) Dose Ordered Sig/Dorothea Route PRN Reason Start Time Stop Time Status Last Admin Dose Admin Acetaminophen (Tylenol) 650 mg Q4H PRN ORAL Fever/Headache/Mild Pain 05/06/18 21:45 06/05/18 21:44 05/07/18 16:34 Amlodipine Besylate (Norvasc) 5 mg DAILY ORAL 05/08/18 09:00 06/06/18 08:59 05/08/18 08:52 Dextrose (Dextrose 50%) 25 ml STAT PRN IV Hypoglycemia 05/06/18 21:45 06/05/18 21:44 Dextrose (Dextrose 50%) 50 ml STAT PRN IV Hypoglycemia 05/06/18 21:45 06/05/18 21:44 Docusate Sodium (Colace) 100 mg TID ORAL 05/07/18 13:00 06/06/18 08:59 05/08/18 13:49 Insulin Aspart (NovoLOG) BID SUBQ 05/07/18 06:30 06/06/18 06:29 05/08/18 08:53 Magnesium Hydroxide (Mom) 30 ml QHS PRN ORAL constipation 05/07/18 11:07 06/06/18 11:06 Multivitamins Therapeutic (Therapeutic Multivitamin) 1 ea DAILY ORAL 05/07/18 09:00 06/06/18 08:59 05/08/18 08:52 Pantoprazole (Protonix) 40 mg ACBREAKFAST ORAL 05/07/18 06:30 06/06/18 06:29 05/08/18 05:51 Potassium Chloride (K-Dur) 40 meq BID ORAL 05/08/18 09:00 06/06/18 11:06 05/08/18 08:52 Tamsulosin HCl (Flomax) 0.4 mg BEDTIME ORAL 05/07/18 21:00 06/06/18 20:59 05/07/18 21:02 Thiamine HCl (Vitamin B1) 100 mg DAILY ORAL 05/07/18 09:00 06/06/18 08:59 05/08/18 08:52 Vancomycin HCl (Vanco rx to dose) 1 ea DAILY PRN MISC Per rx protocol 05/07/18 10:30 06/06/18 10:29 Vancomycin/Sodium Chloride 250 ml @ 166.667 mls/hr Q12H IVPB 05/07/18 11:00 05/12/18 10:59 05/08/18 11:21 Assessment/Plan Problem List: (1) Cellulitis Assessment & Plan: cellulitis of right hand mainly around proximal second digit with surrounding edema unknown etiology or history. no hx trauma as per patient leukocytosis on admission on IV Abx plain films okay. -MRI to evaluate for possible abscess -IV Abx -keep affected extremity elevated -will follow with recs. thank you for this consultation. ICD Codes: L03.90 - Cellulitis, unspecified SNOMED: [id number] Qualifiers: Qualified Codes: L03.113 - Cellulitis of right upper limb Status: stable Sha Hemphill May 08, 2018 14:34
[2018-05-08 16:00] VITALS: BP 138/79
--- NOTE | 2018-05-08 16:02 | Consultation ---
History of Present Illness General Date patient seen: May 08, 2018 Chief Complaint: Skin Rash/Abscess Reason for Consultation: right hand cellulitis Present Illness HPI 73-year-old male presents to the emergency department complaining of 10 out of 10 in severity pain of his hand. the pt has hx of alcohol dependence and stated he drinks everyday at least 3 bottles of bears. he was irritable and at some point he was agitated and paranoid. he is forgetful and has memory impairment Allergies: Coded Allergies: No Known Allergies (Unverified , 11/03/17) Medication History Scheduled Amlodipine Besylate (Norvasc), 5 MG ORAL DAILY, (Reported) Docusate Sodium* (Docusate Sodium*), 100 MG ORAL DAILY, (Reported) Doxycycline Hyclate* (Vibramycin*), 100 MG ORAL EVERY 12 HOURS, (Reported) Folic Acid* (Folic Acid*), 1 MG ORAL DAILY, (Reported) Magnesium Hydroxide (Milk of Magnesia), 30 ML ORAL DAILY, (Reported) Multivitamin With Minerals (Multivitamins With Minerals*), 1 TAB ORAL DAILY, ( Reported) Pantoprazole Sodium (Protonix), 40 MG GT DAILY, (Reported) Tamsulosin Hcl (Tamsulosin Hcl*), 0.4 MG ORAL BEDTIME, (Reported) Thiamine Hcl* (Vitamin B-1*), 100 MG ORAL DAILY, (Reported) Scheduled PRN Acetaminophen* (Acetaminophen 325MG Tablet*), 650 MG ORAL Q4H PRN for For Pain, (Reported) Acetaminophen* (Acetaminophen 325MG Tablet*), 650 MG ORAL Q4H PRN for Fever/ Headache/Mild Pain, (Reported) Patient History Limited by: medical condition History Provided By: Patient, Medical Record, PMD Healthcare decision maker Resuscitation status Full Code Advanced Directive on File Past Medical/Surgical History Past Medical/Surgical History: (1) Lymphangitis (2) Anemia (3) Cellulitis (4) Hypokalemia (5) Constipated Review of Systems Psychiatric: Reports: anxiety, depressed feelings, emotional problems Physical Exam General Appearance: no apparent distress, alert Neurologic: depressed affect - irritable and angry Last 24 Hour Vital Signs Date Time Temp Pulse Resp B/P (MAP) Pulse Ox O2 Delivery O2 Flow Rate FiO2 05/08/18 12:00 98.2 70 19 148/75 (99) 98 98.2 05/08/18 09:00 Room Air 05/08/18 08:52 66 125/68 05/08/18 08:00 98.7 66 20 125/68 (87) 95 98.7 05/08/18 04:00 98.2 65 19 122/66 (84) 94 98.2 05/08/18 00:00 98.2 65 19 142/79 (100) 97 98.2 05/07/18 21:00 Room Air 05/07/18 20:00 97.0 69 19 133/78 (96) 98 97.0 05/07/18 18:14 98.4 98.4 05/07/18 17:04 101.4 05/07/18 16:34 101.4 05/07/18 16:00 101.4 71 18 142/77 (98) 98 101.4 Intake and Output 05/07/18 05/08/18 19:00 07:00 Intake Total 730.000 ml 250.000 ml Output Total 500 ml Balance 230.000 ml 250.000 ml Intake Oral 480 ml IV Total 250.000 ml 250.000 ml Output Urine Total 500 ml # Voids 2 Laboratory Tests Test 05/08/18 05:00 White Blood Count 8.4 K/UL (4.8-10.8) Red Blood Count 4.46 M/UL (4.70-6.10) L Hemoglobin 12.2 G/DL (14.2-18.0) L Hematocrit 37.4 % (42.0-52.0) L Mean Corpuscular Volume 84 FL (80-99) Mean Corpuscular Hemoglobin 27.4 PG (27.0-31.0) Mean Corpuscular Hemoglobin Concent 32.6 G/DL (32.0-36.0) Red Cell Distribution Width 12.7 % (11.6-14.8) Platelet Count 255 K/UL (150-450) Mean Platelet Volume 7.4 FL (6.5-10.1) Neutrophils (%) (Auto) 58.9 % (45.0-75.0) Lymphocytes (%) (Auto) 25.8 % (20.0-45.0) Monocytes (%) (Auto) 10.3 % (1.0-10.0) H Eosinophils (%) (Auto) 4.3 % (0.0-3.0) H Basophils (%) (Auto) 0.6 % (0.0-2.0) Sodium Level 139 MMOL/L (136-145) Potassium Level 3.4 MMOL/L (3.5-5.1) L Chloride Level 106 MMOL/L (98-107) Carbon Dioxide Level 24 MMOL/L (21-32) Anion Gap 9 mmol/L (5-15) Blood Urea Nitrogen 7 mg/dL (7-18) Creatinine 0.7 MG/DL (0.55-1.30) Estimat Glomerular Filtration Rate mL/min (>60) Glucose Level 88 MG/DL (74-106) Hemoglobin A1c 6.0 % (4.3-6.0) Uric Acid 4.4 MG/DL (2.6-7.2) Calcium Level 8.4 MG/DL (8.5-10.1) L Phosphorus Level 3.3 MG/DL (2.5-4.9) Magnesium Level 2.0 MG/DL (1.8-2.4) Iron Level 39 ug/dL (50-175) L Total Iron Binding Capacity 206 ug/dL (250-450) L Percent Iron Saturation 19 % (15-50) Unsaturated Iron Binding 167 ug/dL (112-346) Ferritin 139 NG/ML (8-388) Total Bilirubin 1.1 MG/DL (0.2-1.0) H Direct Bilirubin 0.1 MG/DL (0.0-0.3) Gamma Glutamyl Transpeptidase 21 U/L (5-85) Aspartate Amino Transf (AST/SGOT) 15 U/L (15-37) Alanine Aminotransferase (ALT/SGPT) 21 U/L (12-78) Alkaline Phosphatase 97 U/L (46-116) Pro-B-Type Natriuretic Peptide 221 pg/mL (0-125) H Total Protein 7.3 G/DL (6.4-8.2) Albumin 2.7 G/DL (3.4-5.0) L Globulin 4.6 g/dL Albumin/Globulin Ratio 0.6 (1.0-2.7) L Triglycerides Level 82 MG/DL (30-150) Cholesterol Level 126 MG/DL (< 200) LDL Cholesterol 79 mg/dL (<100) HDL Cholesterol 40 MG/DL (40-60) Cholesterol/HDL Ratio 3.2 (3.3-4.4) L Vitamin B12 Level 387 PG/ML (193-986) Folate 47.0 NG/ML (8.6-58.9) Thyroid Stimulating Hormone (TSH) 2.546 uiU/mL (0.358-3.740) Height (Feet): 5 Height (Inches): 7.00 Weight (Pounds): 180 Medications Current Medications Medications (Trade) Dose Ordered Sig/Dorothea Route PRN Reason Start Time Stop Time Status Last Admin Dose Admin Acetaminophen (Tylenol) 650 mg Q4H PRN ORAL Fever/Headache/Mild Pain 05/06/18 21:45 06/05/18 21:44 05/07/18 16:34 Amlodipine Besylate (Norvasc) 5 mg DAILY ORAL 05/08/18 09:00 06/06/18 08:59 05/08/18 08:52 Dextrose (Dextrose 50%) 25 ml STAT PRN IV Hypoglycemia 05/06/18 21:45 06/05/18 21:44 Dextrose (Dextrose 50%) 50 ml STAT PRN IV Hypoglycemia 05/06/18 21:45 06/05/18 21:44 Docusate Sodium (Colace) 100 mg TID ORAL 05/07/18 13:00 06/06/18 08:59 05/08/18 13:49 Gadobutrol (Gadavist) 7.5 mmol NOW PRN IV Radiology Procedure 05/08/18 14:30 05/10/18 14:29 Insulin Aspart (NovoLOG) BID SUBQ 05/07/18 06:30 06/06/18 06:29 05/08/18 08:53 Magnesium Hydroxide (Mom) 30 ml QHS PRN ORAL constipation 05/07/18 11:07 06/06/18 11:06 Multivitamins Therapeutic (Therapeutic Multivitamin) 1 ea DAILY ORAL 05/07/18 09:00 06/06/18 08:59 05/08/18 08:52 Pantoprazole (Protonix) 40 mg ACBREAKFAST ORAL 05/07/18 06:30 06/06/18 06:29 05/08/18 05:51 Potassium Chloride (K-Dur) 40 meq BID ORAL 05/08/18 09:00 06/06/18 11:06 05/08/18 08:52 Tamsulosin HCl (Flomax) 0.4 mg BEDTIME ORAL 05/07/18 21:00 06/06/18 20:59 05/07/18 21:02 Thiamine HCl (Vitamin B1) 100 mg DAILY ORAL 05/07/18 09:00 06/06/18 08:59 05/08/18 08:52 Vancomycin HCl (Vanco rx to dose) 1 ea DAILY PRN MISC Per rx protocol 05/07/18 10:30 06/06/18 10:29 Vancomycin/Sodium Chloride 250 ml @ 166.667 mls/hr Q12H IVPB 05/07/18 11:00 05/12/18 10:59 05/08/18 11:21 Assessment/Plan Assessment/Plan alcohol dependence mdd folate thiamine Valium prn Fela Bond MD May 08, 2018 16:02
[2018-05-08] MEDS: Tamsulosin 0.4mg cap ORAL SCH (20:17)
[2018-05-08 21:00] VITALS: BP 139/70
--- NOTE | 2018-05-08 22:24 | General Progress Note ---
Assessment/Plan Problem List: (1) Cellulitis ICD Codes: L03.90 - Cellulitis, unspecified SNOMED: [id number] Qualifiers: Qualified Codes: L03.113 - Cellulitis of right upper limb Status: progressing Assessment/Plan right hand cellulitis improving abx per id afebrile Subjective ROS Limited/Unobtainable: Yes Allergies: Coded Allergies: No Known Allergies (Unverified , 11/03/17) Objective Last 24 Hour Vital Signs Date Time Temp Pulse Resp B/P (MAP) Pulse Ox O2 Delivery O2 Flow Rate FiO2 05/08/18 16:00 97.6 75 18 138/79 (98) 99 97.6 05/08/18 12:00 98.2 70 19 148/75 (99) 98 98.2 05/08/18 09:00 Room Air 05/08/18 08:52 66 125/68 05/08/18 08:00 98.7 66 20 125/68 (87) 95 98.7 05/08/18 04:00 98.2 65 19 122/66 (84) 94 98.2 05/08/18 00:00 98.2 65 19 142/79 (100) 97 98.2 Intake and Output 05/07/18 05/08/18 19:00 07:00 Intake Total 730.000 ml 250.000 ml Output Total 500 ml Balance 230.000 ml 250.000 ml Intake Oral 480 ml IV Total 250.000 ml 250.000 ml Output Urine Total 500 ml # Voids 2 Laboratory Tests 05/08/18 05:00: White Blood Count 8.4, Red Blood Count 4.46L, Hemoglobin 12.2L, Hematocrit 37.4L , Mean Corpuscular Volume 84, Mean Corpuscular Hemoglobin 27.4, Mean Corpuscular Hemoglobin Concent 32.6, Red Cell Distribution Width 12.7, Platelet Count 255, Mean Platelet Volume 7.4, Neutrophils (%) (Auto) 58.9, Lymphocytes (% ) (Auto) 25.8, Monocytes (%) (Auto) 10.3H, Eosinophils (%) (Auto) 4.3H, Basophils (%) (Auto) 0.6, Sodium Level 139, Potassium Level 3.4L, Chloride Level 106, Carbon Dioxide Level 24, Anion Gap 9, Blood Urea Nitrogen 7, Creatinine 0.7, Estimat Glomerular Filtration Rate , Glucose Level 88, Hemoglobin A1c 6.0, Uric Acid 4.4, Calcium Level 8.4L, Phosphorus Level 3.3, Magnesium Level 2.0, Iron Level 39L, Total Iron Binding Capacity 206L, Percent Iron Saturation 19, Unsaturated Iron Binding 167, Ferritin 139, Total Bilirubin 1.1H, Direct Bilirubin 0.1, Gamma Glutamyl Transpeptidase 21, Aspartate Amino Transf (AST/SGOT) 15, Alanine Aminotransferase (ALT/SGPT) 21, Alkaline Phosphatase 97, Pro-B-Type Natriuretic Peptide 221H, Total Protein 7.3, Albumin 2.7L, Globulin 4.6, Albumin/Globulin Ratio 0.6L, Triglycerides Level 82, Cholesterol Level 126, LDL Cholesterol 79, HDL Cholesterol 40, Cholesterol/HDL Ratio 3.2L, Vitamin B12 Level 387, Folate 47.0, Thyroid Stimulating Hormone (TSH ) 2.546 05/08/18 21:45: Vancomycin Level Trough 7.6 Height (Feet): 5 Height (Inches): 7.00 Weight (Pounds): 180 Cardiovascular: normal rate Respiratory/Chest: lungs clear Abdomen: soft Ricardo Slater MD May 08, 2018 22:24
[2018-05-08] MEDS: Vancomycin 1 GM in D5W 275 ML IVPB SCH (23:23)
[2018-05-09 04:00] VITALS: BP 134/80
[2018-05-09 08:00] VITALS: BP 119/53
[2018-05-09] MEDS: Multivitamin w/Minerals tab ORAL SCH (09:18)
[2018-05-09] MEDS: Docusate 100mg cap ORAL SCH ×3 (09:20→17:54)
[2018-05-09] MEDS: Thiamine 100mg tab ORAL SCH (09:20)
[2018-05-09] MEDS: NovoLOG Insulin Flexpen SUBQ SCH ×2 (09:47→17:55)
[2018-05-09] MEDS: Vancomycin 1 GM in D5W 275 ML IVPB SCH ×2 (11:20→22:29)
--- NOTE | 2018-05-09 11:52 | Nephrology Progress Note ---
Assessment/Plan Problem List: (1) Anemia (2) Lymphangitis (3) Cellulitis (4) Hypokalemia Assessment Lymphangitis Cellulitis Low K Anemia Plan K supplements per order, antibiotivs Anemia muir due MRI hand Subjective ROS Limited/Unobtainable: No Constitutional: Reports: malaise Objective Objective Last 24 Hour Vital Signs Date Time Temp Pulse Resp B/P (MAP) Pulse Ox O2 Delivery O2 Flow Rate FiO2 05/09/18 09:20 66 134/80 05/09/18 09:00 Room Air 05/09/18 08:00 97.5 70 18 119/53 (75) 98 97.5 05/09/18 04:00 97.7 66 18 134/80 (98) 97 97.7 05/08/18 23:55 98.1 05/08/18 23:25 98.1 05/08/18 21:00 98.1 79 19 139/70 (93) 97 98.1 05/08/18 21:00 Room Air 05/08/18 16:00 97.6 75 18 138/79 (98) 99 97.6 05/08/18 12:00 98.2 70 19 148/75 (99) 98 98.2 Intake and Output 05/08/18 05/09/18 19:00 07:00 Intake Total 840 ml 515 ml Output Total 300 ml Balance 840 ml 215 ml Intake Oral 840 ml 240 ml IV Total 275 ml Output Urine Total 300 ml # Voids 6 # Bowel Movements 1 Laboratory Tests 05/08/18 21:45: Vancomycin Level Trough 7.6 Height (Feet): 5 Height (Inches): 7.00 Weight (Pounds): 180 General Appearance: no apparent distress Cardiovascular: normal rate Respiratory/Chest: lungs clear Extremities: other - hand cellulitis + Objective PE not changed Duncan Szymanski MD May 09, 2018 11:52
[2018-05-09 12:00] VITALS: BP 120/58
--- NOTE | 2018-05-09 12:20 | General Surgery Progress Note ---
General Surgery-Progress Note Subjective Additional Comments no acute events. still with pain in right hand but improving. had MRI hand done. no n/v/f/c. Objective Last 24 Hour Vital Signs Date Time Temp Pulse Resp B/P (MAP) Pulse Ox O2 Delivery O2 Flow Rate FiO2 05/09/18 09:20 66 134/80 05/09/18 09:00 Room Air 05/09/18 08:00 97.5 70 18 119/53 (75) 98 97.5 05/09/18 04:00 97.7 66 18 134/80 (98) 97 97.7 05/08/18 23:55 98.1 05/08/18 23:25 98.1 05/08/18 21:00 98.1 79 19 139/70 (93) 97 98.1 05/08/18 21:00 Room Air 05/08/18 16:00 97.6 75 18 138/79 (98) 99 97.6 I&O Intake and Output 05/08/18 05/09/18 19:00 07:00 Intake Total 840 ml 515 ml Output Total 300 ml Balance 840 ml 215 ml Intake Oral 840 ml 240 ml IV Total 275 ml Output Urine Total 300 ml # Voids 6 # Bowel Movements 1 Wound: clean, dry, intact, other - edema/ cellulitis Drains: none Cardiovascular: RSR Respiratory: clear Abdomen: soft, flat, non-tender, present bowel sounds Extremities: edema, tenderness Laboratory Tests Test 05/08/18 21:45 Vancomycin Level Trough 7.6 ug/mL (5.0-12.0) Plan Problems: (1) Cellulitis Assessment & Plan: cellulitis of right hand mainly around proximal second digit with surrounding edema unknown etiology or history. no hx trauma as per patient leukocytosis on admission on IV Abx plain films okay. exam improved today. cellulitis improving with ABX -Pending final read from MRI. -IV Abx -keep affected extremity elevated -will follow with recs. thank you for this consultation. Sha Hemphill May 09, 2018 12:20
--- NOTE | 2018-05-09 14:17 | Infectious Diseases Prog Note ---
Assessment/Plan Assessment/Plan A; R hand Cellulitis improving ? abscess of hand DM HPN P; Continue IV Vancomycin Waiting for MRI report Subjective ROS Limited/Unobtainable: No Respiratory: Reports: no symptoms Cardiovascular: Reports: no symptoms Gastrointestinal/Abdominal: Reports: no symptoms Genitourinary: Reports: no symptoms Musculoskeletal: Reports: pain, other - right hand Allergies: Coded Allergies: No Known Allergies (Unverified , 11/03/17) Objective Vital Signs Last 24 Hour Vital Signs Date Time Temp Pulse Resp B/P (MAP) Pulse Ox O2 Delivery O2 Flow Rate FiO2 05/09/18 12:00 97.3 74 18 120/58 (78) 98 97.3 05/09/18 09:20 66 134/80 05/09/18 09:00 Room Air 05/09/18 08:00 97.5 70 18 119/53 (75) 98 97.5 05/09/18 04:00 97.7 66 18 134/80 (98) 97 97.7 05/08/18 23:55 98.1 05/08/18 23:25 98.1 05/08/18 21:00 98.1 79 19 139/70 (93) 97 98.1 05/08/18 21:00 Room Air 05/08/18 16:00 97.6 75 18 138/79 (98) 99 97.6 Height (Feet): 5 Height (Inches): 7.00 Weight (Pounds): 180 General Appearance: no acute distress HEENT: mucous membranes moist Respiratory/Chest: lungs clear Cardiovascular: normal rate Abdomen: soft, non tender Extremities: no edema Skin: other - right hand localized tenderness, erythema near secod finger base Neurologic/Psychiatric: alert, oriented x 3, responsive Microbiology Date/Time Source Procedure Growth Status 05/06/18 17:30 Blood Blood Culture - Preliminary NO GROWTH AFTER 48 HOURS Resulted 05/06/18 17:15 Blood Blood Culture - Preliminary NO GROWTH AFTER 48 HOURS Resulted 05/06/18 18:07 Nasal Nares MRSA Culture - Final NO METHICILLIN RESISTANT STAPH AUREUS... Complete Laboratory Tests Test 05/08/18 21:45 Vancomycin Level Trough 7.6 ug/mL (5.0-12.0) Current Medications Medications (Trade) Dose Ordered Sig/Dorothea Route PRN Reason Start Time Stop Time Status Last Admin Dose Admin Acetaminophen (Tylenol) 650 mg Q4H PRN ORAL Fever/Headache/Mild Pain 05/06/18 21:45 06/05/18 21:44 05/09/18 09:19 Amlodipine Besylate (Norvasc) 5 mg DAILY ORAL 05/08/18 09:00 06/06/18 08:59 05/09/18 09:20 Dextrose (Dextrose 50%) 25 ml STAT PRN IV Hypoglycemia 05/06/18 21:45 06/05/18 21:44 Dextrose (Dextrose 50%) 50 ml STAT PRN IV Hypoglycemia 05/06/18 21:45 06/05/18 21:44 Diazepam (Valium) 10 mg Q6H PRN ORAL For Anxiety 05/08/18 16:00 05/15/18 15:59 Docusate Sodium (Colace) 100 mg TID ORAL 05/07/18 13:00 06/06/18 08:59 05/09/18 13:04 Fluoxetine HCl (PROzac) 20 mg DAILY ORAL 05/09/18 09:00 06/08/18 08:59 05/09/18 09:20 Gadobutrol (Gadavist) 7.5 mmol NOW PRN IV Radiology Procedure 05/08/18 14:30 05/10/18 14:29 Insulin Aspart (NovoLOG) BID SUBQ 05/07/18 06:30 06/06/18 06:29 05/09/18 09:47 Magnesium Hydroxide (Mom) 30 ml QHS PRN ORAL constipation 05/07/18 11:07 06/06/18 11:06 Multivitamins Therapeutic (Therapeutic Multivitamin) 1 ea DAILY ORAL 05/07/18 09:00 06/06/18 08:59 05/09/18 09:18 Pantoprazole (Protonix) 40 mg ACBREAKFAST ORAL 05/07/18 06:30 06/06/18 06:29 05/09/18 06:02 Potassium Chloride (K-Dur) 40 meq BID ORAL 05/08/18 09:00 06/06/18 11:06 05/09/18 09:19 Tamsulosin HCl (Flomax) 0.4 mg BEDTIME ORAL 05/07/18 21:00 06/06/18 20:59 05/08/18 20:17 Thiamine HCl (Vitamin B1) 100 mg DAILY ORAL 05/07/18 09:00 06/06/18 08:59 05/09/18 09:20 Vancomycin HCl (Vanco rx to dose) 1 ea DAILY PRN MISC Per rx protocol 05/07/18 10:30 06/06/18 10:29 Vancomycin HCl 1 gm/Dextrose 275 ml @ 184 mls/hr Q12H IVPB 05/08/18 23:00 05/13/18 22:59 05/09/18 11:20 Tello Gomes MD May 09, 2018 14:17
--- NOTE | 2018-05-09 14:51 | Cardiology Report ---
APPROVED REPORT EKG Measurement Heart [id number] [place] 200P20 [id number] Normal sinus rhythm Cannot rule out Anterior infarct, age undetermined Abnormal ECG
[2018-05-09 16:00] VITALS: BP 131/77
--- NOTE | 2018-05-09 19:42 | General Progress Note ---
Assessment/Plan Status: stable, progressing Assessment/Plan alcohol dependence mdd folate thiamine Valium prn Prozac Subjective Date patient seen: May 09, 2018 Neurologic/Psychiatric: Reports: anxiety, depressed, emotional problems Allergies: Coded Allergies: No Known Allergies (Unverified , 11/03/17) Objective Last 24 Hour Vital Signs Date Time Temp Pulse Resp B/P (MAP) Pulse Ox O2 Delivery O2 Flow Rate FiO2 05/09/18 16:00 98.5 76 20 131/77 (95) 98 98.5 05/09/18 12:00 97.3 74 18 120/58 (78) 98 97.3 05/09/18 09:20 66 134/80 05/09/18 09:00 Room Air 05/09/18 08:00 97.5 70 18 119/53 (75) 98 97.5 05/09/18 04:00 97.7 66 18 134/80 (98) 97 97.7 05/08/18 23:55 98.1 05/08/18 23:25 98.1 05/08/18 21:00 98.1 79 19 139/70 (93) 97 98.1 05/08/18 21:00 Room Air Intake and Output 05/08/18 05/09/18 19:00 07:00 Intake Total 840 ml 515 ml Output Total 300 ml Balance 840 ml 215 ml Intake Oral 840 ml 240 ml IV Total 275 ml Output Urine Total 300 ml # Voids 6 # Bowel Movements 1 Laboratory Tests 05/08/18 21:45: Vancomycin Level Trough 7.6 Height (Feet): 5 Height (Inches): 7.00 Weight (Pounds): 180 General Appearance: no apparent distress, alert Neurologic: oriented x 3, responsive, depressed affect Fela Bucio MD May 09, 2018 19:42
[2018-05-09 20:00] VITALS: BP 106/65
--- NOTE | 2018-05-09 20:01 | General Progress Note ---
Assessment/Plan Problem List: (1) Cellulitis ICD Codes: L03.90 - Cellulitis, unspecified SNOMED: [id number] Qualifiers: Qualified Codes: L03.113 - Cellulitis of right upper limb Status: progressing Assessment/Plan right hand cellulitis improving psychiatric patient afebrile Subjective ROS Limited/Unobtainable: Yes Allergies: Coded Allergies: No Known Allergies (Unverified , 11/03/17) Objective Last 24 Hour Vital Signs Date Time Temp Pulse Resp B/P (MAP) Pulse Ox O2 Delivery O2 Flow Rate FiO2 05/09/18 16:00 98.5 76 20 131/77 (95) 98 98.5 05/09/18 12:00 97.3 74 18 120/58 (78) 98 97.3 05/09/18 09:20 66 134/80 05/09/18 09:00 Room Air 05/09/18 08:00 97.5 70 18 119/53 (75) 98 97.5 05/09/18 04:00 97.7 66 18 134/80 (98) 97 97.7 05/08/18 23:55 98.1 05/08/18 23:25 98.1 05/08/18 21:00 98.1 79 19 139/70 (93) 97 98.1 05/08/18 21:00 Room Air Intake and Output 05/08/18 05/09/18 19:00 07:00 Intake Total 840 ml 515 ml Output Total 300 ml Balance 840 ml 215 ml Intake Oral 840 ml 240 ml IV Total 275 ml Output Urine Total 300 ml # Voids 6 # Bowel Movements 1 Laboratory Tests 05/08/18 21:45: Vancomycin Level Trough 7.6 Height (Feet): 5 Height (Inches): 7.00 Weight (Pounds): 180 Respiratory/Chest: lungs clear Abdomen: soft Ricardo Slater MD May 09, 2018 20:01
[2018-05-09] MEDS: Tamsulosin 0.4mg cap ORAL SCH (21:00)
[2018-05-10] VITALS: BP 159/85
[2018-05-10 04:00] VITALS: BP 115/84
[2018-05-10 06:08] LABS: BASOPHILS % (AUTO) 1.1 % (0.0-2.0); EOSINOPHILS % (AUTO) 7.2 % (0.0-3.0); HEMATOCRIT 36.5 % (42.0-52.0); HEMOGLOBIN 11.9 G/DL (14.2-18.0); LYMPHOCYTES % (AUTO) 23.8 % (20.0-45.0); MEAN CORPUSCULAR VOLUME 85 FL (80-99); MONOCYTES % (AUTO) 11.9 % (1.0-10.0); NEUTROPHILS % (AUTO) 55.9 % (45.0-75.0); PLATELET COUNT 310 K/UL (150-450); RED BLOOD COUNT 4.32 M/UL (4.70-6.10); RED CELL DISTRIBUTION WIDTH 12.5 % (11.6-14.8); WHITE BLOOD COUNT 6.9 K/UL (4.8-10.8)
[2018-05-10 06:50] LABS: ALANINE AMINOTRANSFERASE 20 U/L (12-78); ALBUMIN 2.7 G/DL (3.4-5.0); ALBUMIN/GLOBULIN RATIO 0.6 (1.0-2.7); ALKALINE PHOSPHATASE 105 U/L (46-116); ANION GAP 8 mmol/L (5-15); ASPARTATE AMINO TRANSFERASE 15 U/L (15-37); BILIRUBIN,TOTAL 0.7 MG/DL (0.2-1.0); BLOOD UREA NITROGEN 13 mg/dL (7-18); CALCIUM 8.7 MG/DL (8.5-10.1); CARBON DIOXIDE 24 MMOL/L (21-32); CHLORIDE 106 MMOL/L (98-107); CREATININE 0.8 MG/DL (0.55-1.30); PHOSPHORUS 3.1 MG/DL (2.5-4.9); POTASSIUM 3.7 MMOL/L (3.5-5.1); SODIUM 138 MMOL/L (136-145)
[2018-05-10 08:00] VITALS: BP 131/70
[2018-05-10] MEDS: Multivitamin w/Minerals tab ORAL SCH (09:01)
[2018-05-10] MEDS: Thiamine 100mg tab ORAL SCH (09:02)
[2018-05-10] MEDS: Docusate 100mg cap ORAL SCH ×2 (09:02→13:13)
[2018-05-10] MEDS: NovoLOG Insulin Flexpen SUBQ SCH (09:08)
--- NOTE | 2018-05-10 09:23 | Nephrology Progress Note ---
Assessment/Plan Problem List: (1) Anemia (2) Lymphangitis (3) Cellulitis (4) Hypokalemia Assessment Lymphangitis Cellulitis Low K Anemia stable from renal stand Plan K supplements per order, antibiotivs Anemia muir ? DC Subjective ROS Limited/Unobtainable: No Objective Objective Last 24 Hour Vital Signs Date Time Temp Pulse Resp B/P (MAP) Pulse Ox O2 Delivery O2 Flow Rate FiO2 05/10/18 09:01 63 131/70 05/10/18 08:00 97.5 63 18 131/70 (90) 98 97.5 05/10/18 04:00 98.6 75 17 115/84 (94) 100 98.6 05/10/18 00:00 98.0 72 15 159/85 (109) 100 98.0 05/09/18 21:00 Room Air 05/09/18 20:00 98.2 79 21 106/65 (79) 100 98.2 05/09/18 16:00 98.5 76 20 131/77 (95) 98 98.5 05/09/18 12:00 97.3 74 18 120/58 (78) 98 97.3 Intake and Output 05/09/18 05/10/18 19:00 07:00 Intake Total 1384 ml 275 ml Output Total 300 ml Balance 1384 ml -25 ml Intake Oral 1200 ml IV Total 184 ml 275 ml Output Urine Total 300 ml # Voids 6 Laboratory Tests 05/10/18 05:15: White Blood Count 6.9, Red Blood Count 4.32L, Hemoglobin 11.9L, Hematocrit 36.5L , Mean Corpuscular Volume 85, Mean Corpuscular Hemoglobin 27.7, Mean Corpuscular Hemoglobin Concent 32.7, Red Cell Distribution Width 12.5, Platelet Count 310, Mean Platelet Volume 7.1, Neutrophils (%) (Auto) 55.9, Lymphocytes (% ) (Auto) 23.8, Monocytes (%) (Auto) 11.9H, Eosinophils (%) (Auto) 7.2H, Basophils (%) (Auto) 1.1, Sodium Level 138, Potassium Level 3.7, Chloride Level 106, Carbon Dioxide Level 24, Anion Gap 8, Blood Urea Nitrogen 13, Creatinine 0.8, Estimat Glomerular Filtration Rate , Glucose Level 106, Uric Acid 4.1, Calcium Level 8.7, Phosphorus Level 3.1, Magnesium Level 2.0, Total Bilirubin 0.7, Aspartate Amino Transf (AST/SGOT) 15, Alanine Aminotransferase (ALT/SGPT) 20, Alkaline Phosphatase 105, C-Reactive Protein, Quantitative 6.8H, Total Protein 7.4, Albumin 2.7L, Globulin 4.7, Albumin/Globulin Ratio 0.6L Height (Feet): 5 Height (Inches): 7.00 Weight (Pounds): 175 General Appearance: no apparent distress Cardiovascular: normal rate Respiratory/Chest: lungs clear Abdomen: soft Extremities: other - right hand cellulitis improved Objective PE not changed Duncan Szymanski MD May 10, 2018 09:23
[2018-05-10] MEDS: Vancomycin 1 GM in D5W 275 ML IVPB SCH (10:52)
--- NOTE | 2018-05-10 11:56 | Diagnostic Imaging Report ---
Indication: Cellulitis of the second digit, suspected abscess Technique: Axial and coronal T1, axial T2 fat saturated, coronal STIR, sagittal STIR images of the right hand Comparison: Reference made to plain radiograph the CT dated 05/07/2018 Findings: There is some edema of the dorsum of the hand, extending also to involve the second digit and the base of the thumb. No underlying marrow signal abnormality is evident. The postcontrast images demonstrate enhancement of the dorsum of the second digit and to a lesser extent the dorsum of the hand. There is a tiny focus of nonenhancement dorsal to the proximal interphalangeal joint which measures no more than 1 x 1 x 3 mm. No marrow signal abnormality is evident. The large tendons are grossly unremarkable and there is no evidence of tendon sheath abnormality. Impression: Edema of the dorsum of the hand and second digit, consistent with stated clinical history of cellulitis. Tiny 1 x 1 x 3 mm focus of nonenhancement dorsal to the second proximal interphalangeal joint could represent a tiny abscess. No other drainable focal fluid collection demonstrated. No evidence of osteomyelitis Findings previously discussed by phone with Dr. Hemphill
[2018-05-10 12:00] VITALS: BP 135/75
[2018-05-10] MEDS ORDERED: NOVOLOG100 UNIT/4 SQ (13:33)
[2018-05-10] MEDS ORDERED: CEPHALEXIN500 MG ORAL (13:36)
[2018-05-10] MEDS ORDERED: DOXYCYCLINE MO100 MG ORAL (13:38)
--- NOTE | 2018-05-10 13:41 | Infectious Diseases Prog Note ---
Assessment/Plan Assessment/Plan A; R hand Cellulitis improving very tiny abscess of hand, too small to drain DM HPN P; Agree with discharge with PO Keflex & Doxycycline X 7 days case was D/W RN Subjective ROS Limited/Unobtainable: Yes Musculoskeletal: Reports: pain, other - in right hand Allergies: Coded Allergies: No Known Allergies (Unverified , 11/03/17) Objective Vital Signs Last 24 Hour Vital Signs Date Time Temp Pulse Resp B/P (MAP) Pulse Ox O2 Delivery O2 Flow Rate FiO2 05/10/18 12:00 98.1 63 18 135/75 (95) 97 98.1 05/10/18 09:01 63 131/70 05/10/18 08:20 Room Air 05/10/18 08:00 97.5 63 18 131/70 (90) 98 97.5 05/10/18 04:00 98.6 75 17 115/84 (94) 100 98.6 05/10/18 00:00 98.0 72 15 159/85 (109) 100 98.0 05/09/18 21:00 Room Air 05/09/18 20:00 98.2 79 21 106/65 (79) 100 98.2 05/09/18 16:00 98.5 76 20 131/77 (95) 98 98.5 Height (Feet): 5 Height (Inches): 7.00 Weight (Pounds): 175 General Appearance: no acute distress HEENT: mucous membranes moist Respiratory/Chest: lungs clear Cardiovascular: normal peripheral pulses, normal rate Abdomen: soft, non tender Extremities: other - right hand edema, erythema & tenderness Laboratory Tests Test 05/10/18 05:15 White Blood Count 6.9 K/UL (4.8-10.8) Red Blood Count 4.32 M/UL (4.70-6.10) L Hemoglobin 11.9 G/DL (14.2-18.0) L Hematocrit 36.5 % (42.0-52.0) L Mean Corpuscular Volume 85 FL (80-99) Mean Corpuscular Hemoglobin 27.7 PG (27.0-31.0) Mean Corpuscular Hemoglobin Concent 32.7 G/DL (32.0-36.0) Red Cell Distribution Width 12.5 % (11.6-14.8) Platelet Count 310 K/UL (150-450) Mean Platelet Volume 7.1 FL (6.5-10.1) Neutrophils (%) (Auto) 55.9 % (45.0-75.0) Lymphocytes (%) (Auto) 23.8 % (20.0-45.0) Monocytes (%) (Auto) 11.9 % (1.0-10.0) H Eosinophils (%) (Auto) 7.2 % (0.0-3.0) H Basophils (%) (Auto) 1.1 % (0.0-2.0) Sodium Level 138 MMOL/L (136-145) Potassium Level 3.7 MMOL/L (3.5-5.1) Chloride Level 106 MMOL/L (98-107) Carbon Dioxide Level 24 MMOL/L (21-32) Anion Gap 8 mmol/L (5-15) Blood Urea Nitrogen 13 mg/dL (7-18) Creatinine 0.8 MG/DL (0.55-1.30) Estimat Glomerular Filtration Rate mL/min (>60) Glucose Level 106 MG/DL (74-106) Uric Acid 4.1 MG/DL (2.6-7.2) Calcium Level 8.7 MG/DL (8.5-10.1) Phosphorus Level 3.1 MG/DL (2.5-4.9) Magnesium Level 2.0 MG/DL (1.8-2.4) Total Bilirubin 0.7 MG/DL (0.2-1.0) Aspartate Amino Transf (AST/SGOT) 15 U/L (15-37) Alanine Aminotransferase (ALT/SGPT) 20 U/L (12-78) Alkaline Phosphatase 105 U/L (46-116) C-Reactive Protein, Quantitative 6.8 mg/dL (0.00-0.90) H Total Protein 7.4 G/DL (6.4-8.2) Albumin 2.7 G/DL (3.4-5.0) L Globulin 4.7 g/dL Albumin/Globulin Ratio 0.6 (1.0-2.7) L Current Medications Medications (Trade) Dose Ordered Sig/Dorothea Route PRN Reason Start Time Stop Time Status Last Admin Dose Admin Acetaminophen (Tylenol) 650 mg Q4H PRN ORAL Fever/Headache/Mild Pain 05/06/18 21:45 06/05/18 21:44 05/10/18 03:21 Amlodipine Besylate (Norvasc) 5 mg DAILY ORAL 05/08/18 09:00 06/06/18 08:59 05/10/18 09:01 Dextrose (Dextrose 50%) 25 ml STAT PRN IV Hypoglycemia 05/06/18 21:45 06/05/18 21:44 Dextrose (Dextrose 50%) 50 ml STAT PRN IV Hypoglycemia 05/06/18 21:45 06/05/18 21:44 Diazepam (Valium) 10 mg Q6H PRN ORAL For Anxiety 05/08/18 16:00 05/15/18 15:59 05/10/18 03:21 Docusate Sodium (Colace) 100 mg TID ORAL 05/07/18 13:00 06/06/18 08:59 05/10/18 13:13 Fluoxetine HCl (PROzac) 20 mg DAILY ORAL 05/09/18 09:00 06/08/18 08:59 05/10/18 09:01 Gadobutrol (Gadavist) 7.5 mmol NOW PRN IV Radiology Procedure 05/08/18 14:30 05/10/18 14:29 Insulin Aspart (NovoLOG) BID SUBQ 05/07/18 06:30 06/06/18 06:29 05/10/18 09:08 Magnesium Hydroxide (Mom) 30 ml QHS PRN ORAL constipation 05/07/18 11:07 06/06/18 11:06 Multivitamins Therapeutic (Therapeutic Multivitamin) 1 ea DAILY ORAL 05/07/18 09:00 06/06/18 08:59 05/10/18 09:01 Pantoprazole (Protonix) 40 mg ACBREAKFAST ORAL 05/07/18 06:30 06/06/18 06:29 05/10/18 05:20 Potassium Chloride (K-Dur) 40 meq BID ORAL 05/08/18 09:00 06/06/18 11:06 05/10/18 09:01 Tamsulosin HCl (Flomax) 0.4 mg BEDTIME ORAL 05/07/18 21:00 06/06/18 20:59 05/08/18 20:17 Thiamine HCl (Vitamin B1) 100 mg DAILY ORAL 05/07/18 09:00 06/06/18 08:59 05/10/18 09:02 Vancomycin HCl (Vanco rx to dose) 1 ea DAILY PRN MISC Per rx protocol 05/07/18 10:30 06/06/18 10:29 Vancomycin HCl 1 gm/Dextrose 275 ml @ 184 mls/hr Q12H IVPB 05/08/18 23:00 05/13/18 22:59 05/10/18 10:52 Tello Gomes MD May 10, 2018 13:41
[2018-05-10] MEDS ORDERED: D5W 275ml ONE (14:11)
--- NOTE | 2018-05-10 14:38 | General Surgery Progress Note ---
General Surgery-Progress Note Subjective Symptoms: improved, tolerating diet, passing flatus, BM Additional Comments late entry for patient seen early this morning during rounding before office around 08:00am. pain improved. edema improved. Objective Last 24 Hour Vital Signs Date Time Temp Pulse Resp B/P (MAP) Pulse Ox O2 Delivery O2 Flow Rate FiO2 05/10/18 12:00 98.1 63 18 135/75 (95) 97 98.1 05/10/18 09:01 63 131/70 05/10/18 08:20 Room Air 05/10/18 08:00 97.5 63 18 131/70 (90) 98 97.5 05/10/18 04:00 98.6 75 17 115/84 (94) 100 98.6 05/10/18 00:00 98.0 72 15 159/85 (109) 100 98.0 05/09/18 21:00 Room Air 05/09/18 20:00 98.2 79 21 106/65 (79) 100 98.2 05/09/18 16:00 98.5 76 20 131/77 (95) 98 98.5 I&O Intake and Output 05/09/18 05/10/18 19:00 07:00 Intake Total 1384 ml 275 ml Output Total 300 ml Balance 1384 ml -25 ml Intake Oral 1200 ml IV Total 184 ml 275 ml Output Urine Total 300 ml # Voids 6 Wound: clean, dry, intact Drains: none Cardiovascular: RSR Respiratory: clear Abdomen: soft, flat, non-tender, present bowel sounds Extremities: other - right hand 2nd digit edema improving Laboratory Tests Test 05/10/18 05:15 White Blood Count 6.9 K/UL (4.8-10.8) Red Blood Count 4.32 M/UL (4.70-6.10) L Hemoglobin 11.9 G/DL (14.2-18.0) L Hematocrit 36.5 % (42.0-52.0) L Mean Corpuscular Volume 85 FL (80-99) Mean Corpuscular Hemoglobin 27.7 PG (27.0-31.0) Mean Corpuscular Hemoglobin Concent 32.7 G/DL (32.0-36.0) Red Cell Distribution Width 12.5 % (11.6-14.8) Platelet Count 310 K/UL (150-450) Mean Platelet Volume 7.1 FL (6.5-10.1) Neutrophils (%) (Auto) 55.9 % (45.0-75.0) Lymphocytes (%) (Auto) 23.8 % (20.0-45.0) Monocytes (%) (Auto) 11.9 % (1.0-10.0) H Eosinophils (%) (Auto) 7.2 % (0.0-3.0) H Basophils (%) (Auto) 1.1 % (0.0-2.0) Sodium Level 138 MMOL/L (136-145) Potassium Level 3.7 MMOL/L (3.5-5.1) Chloride Level 106 MMOL/L (98-107) Carbon Dioxide Level 24 MMOL/L (21-32) Anion Gap 8 mmol/L (5-15) Blood Urea Nitrogen 13 mg/dL (7-18) Creatinine 0.8 MG/DL (0.55-1.30) Estimat Glomerular Filtration Rate mL/min (>60) Glucose Level 106 MG/DL (74-106) Uric Acid 4.1 MG/DL (2.6-7.2) Calcium Level 8.7 MG/DL (8.5-10.1) Phosphorus Level 3.1 MG/DL (2.5-4.9) Magnesium Level 2.0 MG/DL (1.8-2.4) Total Bilirubin 0.7 MG/DL (0.2-1.0) Aspartate Amino Transf (AST/SGOT) 15 U/L (15-37) Alanine Aminotransferase (ALT/SGPT) 20 U/L (12-78) Alkaline Phosphatase 105 U/L (46-116) C-Reactive Protein, Quantitative 6.8 mg/dL (0.00-0.90) H Total Protein 7.4 G/DL (6.4-8.2) Albumin 2.7 G/DL (3.4-5.0) L Globulin 4.7 g/dL Albumin/Globulin Ratio 0.6 (1.0-2.7) L Plan Problems: (1) Cellulitis Assessment & Plan: cellulitis of right hand mainly around proximal second digit with surrounding edema unknown etiology or history. no hx trauma as per patient leukocytosis on admission on IV Abx plain films okay. exam improved today. cellulitis improving with ABX Edema of the dorsum of the hand and second digit, consistent with stated clinical history of cellulitis. Tiny 1 x 1 x 3 mm focus of nonenhancement dorsal to the second proximal interphalangeal joint could represent a tiny abscess. No other drainable focal fluid collection demonstrated. No evidence of osteomyelitis clinical exam without abscess or area that will require drainage. likely just cellulitis with edema. no surgical intervention necessary at this time. okay to d/c from surgical standpoint outpatient follow up -oral abx -keep affected extremity elevated -will follow with recs. thank you for this consultation. Sha Hemphill May 10, 2018 14:37
--- NOTE | 2018-05-10 20:01 | General Progress Note ---
Assessment/Plan Assessment/Plan alcohol dependence mdd folate thiamine Valium prn Prozac Subjective Date patient seen: May 10, 2018 Neurologic/Psychiatric: Reports: anxiety, depressed, emotional problems Allergies: Coded Allergies: No Known Allergies (Unverified , 11/03/17) Objective Last 24 Hour Vital Signs Date Time Temp Pulse Resp B/P (MAP) Pulse Ox O2 Delivery O2 Flow Rate FiO2 05/10/18 12:00 98.1 63 18 135/75 (95) 97 98.1 05/10/18 09:01 63 131/70 05/10/18 08:20 Room Air 05/10/18 08:00 97.5 63 18 131/70 (90) 98 97.5 05/10/18 04:00 98.6 75 17 115/84 (94) 100 98.6 05/10/18 00:00 98.0 72 15 159/85 (109) 100 98.0 05/09/18 21:00 Room Air Intake and Output 05/09/18 05/10/18 19:00 07:00 Intake Total 1384 ml 275 ml Output Total 300 ml Balance 1384 ml -25 ml Intake Oral 1200 ml IV Total 184 ml 275 ml Output Urine Total 300 ml # Voids 6 Laboratory Tests 05/10/18 05:15: White Blood Count 6.9, Red Blood Count 4.32L, Hemoglobin 11.9L, Hematocrit 36.5L , Mean Corpuscular Volume 85, Mean Corpuscular Hemoglobin 27.7, Mean Corpuscular Hemoglobin Concent 32.7, Red Cell Distribution Width 12.5, Platelet Count 310, Mean Platelet Volume 7.1, Neutrophils (%) (Auto) 55.9, Lymphocytes (% ) (Auto) 23.8, Monocytes (%) (Auto) 11.9H, Eosinophils (%) (Auto) 7.2H, Basophils (%) (Auto) 1.1, Sodium Level 138, Potassium Level 3.7, Chloride Level 106, Carbon Dioxide Level 24, Anion Gap 8, Blood Urea Nitrogen 13, Creatinine 0.8, Estimat Glomerular Filtration Rate , Glucose Level 106, Uric Acid 4.1, Calcium Level 8.7, Phosphorus Level 3.1, Magnesium Level 2.0, Total Bilirubin 0.7, Aspartate Amino Transf (AST/SGOT) 15, Alanine Aminotransferase (ALT/SGPT) 20, Alkaline Phosphatase 105, C-Reactive Protein, Quantitative 6.8H, Total Protein 7.4, Albumin 2.7L, Globulin 4.7, Albumin/Globulin Ratio 0.6L Height (Feet): 5 Height (Inches): 7.00 Weight (Pounds): 175 General Appearance: no apparent distress, alert Neurologic: depressed affect Fela Bucio MD May 10, 2018 20:01
--- NOTE | 2018-05-11 09:03 | Discharge Summary ---
Discharge Summary Discharge Summary _ DATE OF ADMISSION: 05/06/2018 DATE OF DISCHARGE: 05/10/2018 CONSULTANTS: Dr. Fela Szymanski BRIEF HOSPITAL COURSE: Patient is a 73-year-old male, from [facility], who presented to the emergency department via EMS complaining of 10 out of 10 in severity pain, swelling, redness, tenderness and warmth on palpation of the base of the index finger and right hand 2 days. He denied fever or chills. He denied any recent injury/ fall or trauma. He has medical history significant for hypertension, diabetes mellitus and BPH. On evaluation at ED, he was afebrile. He was noted to have lymphangitis/ erythema streaking up the right upper extremity to the biceps region. There was a small wound/abrasion overlying the base of the right index finger. Blood work showed leukocytosis, WBC was 11.6. Hemoglobin was slightly low at 12.3, hematocrit 36. Potassium was 3.2. X-ray of the right hand showed soft tissue swelling, with no evidence of fracture. He was given DTaP. He was given potassium replacement. He was started on IV antibiotic vancomycin. He was admitted for cellulitis of the right hand. ID was consulted. He was continued on vancomycin. Surgery was called to evaluate for possible abscess. MRI of the hand showed edema on the dorsum and second digit. There was a tiny focus of non-enhancement dorsal to the second proximal interphalangeal joint. There was no drainable focal fluid collection demonstrated. No evidence of osteomyelitis. There was no surgical intervention necessary. He was advised to keep arm elevated. Electrolytes were monitored. He continued to have low potassium and was placed on K Dur twice a day. Patient has history of alcohol dependence and stated he drinks every day at least 3 bottles of beer. He was irritable, agitated and paranoid. He was given thiamine, folic acid and diazepam prn. He was started on Prozac. Cellulitis improved. Blood culture did not isolate any growth. Patient was afebrile. Leukocytosis resolved. He was cleared for discharge to continue oral antibiotics. FINAL DIAGNOSES: Right hand cellulitis Right arm lymphangitis Hypokalemia Anemia Diabetes mellitus Hypertension Alcohol dependence Major depressive disorder DISPOSITION: Patient was discharged to [facility]. DISCHARGE MEDICATIONS: Refer to Discharge Medication List. Continue with Keflex 500 mg every 6 hours and doxycycline 100 mg twice a day for 1 week. I have been assigned to dictate discharge summary on this account, and I was not involved in the patient's management. Carmen Méndez NP May 11, 2018 09:03
== END 2018-05-10 14:12 | DRG 603 ==
LOC: EDBD 16:21 → EMR 16:35 → 4E 17:14 → EDBEDREQ 18:34 → 4E 20:07
DX: L03.113 Cellulitis of right upper limb (principal); L02.511 Cutaneous abscess of right hand; I10 Essential (primary) hypertension; K21.9 Gastro-esophageal reflux disease without esophagitis; N40.0 Benign prostatic hyperplasia without lower urinary tract symptoms; B19.20 Unspecified viral hepatitis C without hepatic coma; F19.11 Other psychoactive substance abuse, in remission; E11.9 Type 2 diabetes mellitus without complications; I89.1 Lymphangitis; E87.6 Hypokalemia; D64.9 Anemia, unspecified; F32.9 Major depressive disorder, single episode, unspecified; F10.20 Alcohol dependence, uncomplicated; Z79.4 Long term (current) use of insulin
CPT/HCPCS: 36415; 80053; 80061; 80202; 81001; 82248; 82607; 82728; 82746; 82962; 82977; 83036; 83540; 83550; 83605; 83735; 83880; 84100; 84443; 84550; 85025; 86140; 87040; 87081; 90471; 90715; 93005; 96365; 96366; 96375; 99285; A9585; J1815; J8499